=== PATIENT | male | born 1960 | race Caucasian/White ===

== ENCOUNTER 2017-02-26 11:17 | Emergency (ER) | payer SELFPAY ==
[~2017-02-26] VITALS: Ht 172.7 cm; Wt 129.6 kg
[~2017-02-26 11:17] MED LIST: ACET-1256 PO; GUAI1TAB55 PO; VNTHFA/IN INH
[2017-02-26 11:22] VITALS: TEMP 36.7; Ht 172.7 cm; Wt 129.6 kg
--- NOTE | 2017-02-26 12:07 | EMERGENCY ROOM VISIT NOTE ---
ED Visit Note First contact with patient: 11:34 CHIEF COMPLAINT: knee pain HISTORY OF PRESENT ILLNESS: This 56-year-old male patient presents to the emergency department ambulatory after sustaining an injury to the left knee when he was stepping out of his truck yesterday and stepped on a rock causing him to twist his knee and fall. The patient denies any other injuries besides their knee. The patient admits to swelling but denies bruising. There is pain diffusely over the knee but particularly in the lateral aspect. They rate the pain as sharp and 8/10. The patient states they are able to walk on it. No numbness or tingling. No previous injuries to this knee. No ankle, foot or hip pain. REVIEW OF SYSTEMS: A 10 system review of systems was completed with positives and pertinent negatives listed in the HPI. ALLERGIES: No known drug allergies MEDICATIONS: Albuterol PMH: Asthma SOCIAL HISTORY: The patient is employed. He does not smoke currently PHYSICAL EXAM: Vital Signs: Reviewed Nurse's notes, vital signs stable. GENERAL : This is a 56-year-old male, no acute distress, but appears in pain, well- developed, well-nourished. MENTAL STATUS: Alert, oriented to person place and time, and cooperative. MUSCULOSKELETAL: The left knee is mildly swollen. There is no ecchymosis. There is moderate joint effusion present. The patient is tender diffusely over the knee but particularly in the lateral aspect. There is lateral joint line tenderness. The patella does not subluxate. Range of motion is intact but painful. Strength of the quads and hamstrings is 5/5. Oxana's is painful. Hector's and Anterior Drawer tests are negative. There is pain but no obvious laxity with varus and valgus stressing. The foot and toes are warm and well-perfused. Dorsalis pedis pulse 2+. Sensation to pain and light touch is intact. Capillary refill less than 2 seconds. SKIN: There is erythema and warmth to the bilateral anterior lower legs. The patient states this has been there for a proximally 1 month and he dates that his significant other believes it is worsening. He has not had fevers. He has not had lymphangitic streaking. EMERGENCY DEPARTMENT COURSE: I examined the patient. X-rays of the left knee were reviewed by myself and read by radiology and reveal effusion but no obvious fracture. The patient was placed in a knee immobilizer under my direction and the position was satisfactory. The patient declined pain medication. I suspect the patient has a ligamentous injury or possible meniscal injury. He should follow-up with orthopedics. The patient also appears to have cellulitis to the bilateral lower extremities. He states it has been there for several months but his significant other thought it might be worsening slightly. He has not had any fevers. He will be placed on Bactrim and Keflex. The patient was discharged home in good condition. DISCHARGE INSTRUCTIONS: Ice and elevate knee for swelling and pain. Wear knee immobilizer when up and about. Ibuprofen 600 mg every 6 hrs for pain. Follow-up with Orthopedics for further evaluation and treatment - call for appointment. Return with any worsening symptoms. The patient called back to the emergency Department several hours after being discharged. I did forget to send the Bactrim and Keflex prescriptions to the pharmacy. After speaking with him, immediately wrote the prescriptions and electronically symptoms to the pharmacy and additionally personally called the pharmacy to advise him that the prescriptions have been sent. LEFT KNEE 3 VIEWS CLINICAL HISTORY: Left knee pain following twisting injury. COMPARISON: Left knee radiograph January 26, 2015. FINDINGS: Alignment of the left knee is anatomic. No acute fracture is identified. There is a moderate left knee joint effusion. Mild osteophytosis of the left knee is present. IMPRESSION: 1. No acute fracture. 2. Moderate-sized left knee joint effusion. Problem List Medical Problems: (1) Asthma Status: Chronic (2) Avulsion of skin of finger Status: Resolved (3) Bronchitis Status: Resolved (4) Cough Status: Resolved (5) Facial cellulitis Status: Resolved (6) Hoarseness of voice Status: Resolved (7) Hordeolum internum of right lower eyelid Status: Resolved (8) Hordeolum internum of right lower eyelid Status: Resolved (9) Knee contusion Status: Resolved Current/Historical Medications Scheduled Acetaminophen (Tylenol), 1,000 MG PO PRN UD Cephalexin Monohydrate (Keflex), 500 MG PO QID Guaifenesin Ext Rel (Mucinex Ext Rel), 1,200 MG PO Q12 Sulfa/Trimethoprim (Bactrim Ds 800MG/160MG), 1 TAB PO BID Scheduled PRN Albuterol Hfa (Ventolin Hfa), 2 PUFF INH Q4 PRN for SOB/Wheezing Allergies Coded Allergies: No Known Allergies (Verified , 02/26/17) Vital Signs Date Time Temp Pulse Resp B/P Pulse Ox O2 Delivery O2 Flow Rate FiO2 02/26/17 12:55 84 18 144/84 96 02/26/17 11:22 36.7 20 20 139/80 93 Room Air Departure Information Impression Primary Impression: Knee pain Additional Impressions: Knee effusion Cellulitis, leg Dispostion Home / Self-Care Condition GOOD Prescriptions Cephalexin Monohydrate (Keflex) 500 Mg Cap 500 MG PO QID for 10 Days, #40 CAP Prov: Mary Herrera PA-C 02/26/17 Sulfa/Trimethoprim (Bactrim Ds 800MG/160MG) Tab 1 TAB PO BID for 10 Days, #20 TAB Prov: Mary Herrera PA-C 02/26/17 Referrals No Doctor, Assigned (PCP) Jesús Hollingsworth MD Forms HOME CARE DOCUMENTATION FORM, IMPORTANT VISIT INFORMATION, Work Instructions Return To Work: 3 days Additional Instructions: Must wear immoblizer until cleared by orthopedics. No driving when wearing the immobilizer. Patient Instructions ED Effusion Knee, [facility] Additional Instructions Ice and elevate knee for swelling and pain. Wear knee immobilizer when up and about. Ibuprofen 600 mg every 6 hrs for pain. Follow-up with Orthopedics for further evaluation and treatment - call for appointment. Return with any worsening symptoms. Problem Qualifiers Primary Impression: Knee pain Laterality: left Chronicity: acute Qualified Codes: M25.562 - Pain in left knee Additional Impressions: Knee effusion Laterality: left Qualified Codes: M25.462 - Effusion, left knee
--- NOTE | 2017-02-26 12:22 | DIAGNOSTIC IMAGING REPORT ---
LEFT KNEE 3 VIEWS CLINICAL HISTORY: Left knee pain following twisting injury. COMPARISON: Left knee radiograph January 26, 2015. FINDINGS: Alignment of the left knee is anatomic. No acute fracture is identified. There is a moderate left knee joint effusion. Mild osteophytosis of the left knee is present. IMPRESSION: 1. No acute fracture. 2. Moderate-sized left knee joint effusion. Electronically signed by: Tyrone Gerard M.D. 02/26/2017 12:20 PM Dictated Date/Time: 02/26/2017 12:19 PM
[2017-02-26 12:55] VITALS: BP 144/84; PULSE 84; O2SAT 96
[2017-02-26] MEDS ORDERED: CEPH500C PO (15:30)
[2017-02-26] MEDS ORDERED: SULF800T23 PO (15:30)
== END 2017-02-26 12:56 | disposition home or self-care (01) ==
LOC: C.EDB 11:20 → C.EDD 12:56
DX: M25.562 Pain in left knee (principal); M25.462 Effusion, left knee; L03.116 Cellulitis of left lower limb; X50.1XXA Overexertion from prolonged static or awkward postures, initial encounter; J45.909 Unspecified asthma, uncomplicated

== ENCOUNTER 2017-10-22 17:57 | Emergency (ER) | payer SELFPAY ==
[~2017-10-22] VITALS: Ht 172.7 cm; Wt 126.4 kg
[2017-10-22 18:11] VITALS: Ht 172.7 cm; Wt 126.4 kg
[2017-10-22] MEDS ORDERED: ACETAMINOPHEN 500 MG TAB PO STA (18:19)
[2017-10-22] MEDS ORDERED: IBUPROFEN 600 MG TAB PO STA (18:19)
[2017-10-22] MEDS ORDERED: ALBUT/IPRATROP 3MG/0.5MG NEB 3 ML VIAL INH STA (18:19)
[2017-10-22] MEDS ORDERED: METHYLPREDNISOLONE 125 MG VIAL IV STA (18:19)
--- NOTE | 2017-10-22 18:30 | EMERGENCY ROOM VISIT NOTE ---
History Report prepared by Leonard: Julieta Conley Under the Supervision of: Dr. Travis Smith M.D. First contact with patient: 18:14 Chief Complaint: COUGH Stated Complaint: COUGH History of Present Illness The patient is a 57 year old male who presents to the Emergency Room with complaints of persistent cough starting 4-5 days ago. The patient is having right rib pain when he coughs. The pain developed after he started coughing. He has tried taking Mucinex and Sudafed and coughed up some phlegm. He has a headache that worsens when he coughs. He states that his head feels "like it will explode" when he coughs. He is SOB and has a fever. He notes a history of asthma. He has not had pneumonia before. He notes that he was in contact with someone with pneumonia recently. He did not get his flu shot this year. He denies coming into contact with anyone with the flu recently. He denies any history of diabetes. He does have a family history of diabetes. Source of History: patient Onset: 4-5 days ago Position: other (global) Quality: other (cough) Timing: other (persistent) Associated Symptoms: + fevers, + headache, + SOB Note: Pt reports right rib pain. Review of Systems See HPI for pertinent positives & negatives. A total of 10 systems reviewed and were otherwise negative. Past Medical & Surgical Medical Problems: (1) Asthma (2) Avulsion of skin of finger (3) Bronchitis (4) Cough (5) Facial cellulitis (6) Hoarseness of voice (7) Hordeolum internum of right lower eyelid (8) Hordeolum internum of right lower eyelid (9) Knee contusion Family History FH: HTN (hypertension) FH: heart disease FHx: diabetes mellitus Social History Smoking Status: Former Smoker Alcohol Use: none Drug Use: none Marital Status: Occupation Status: employed Current/Historical Medications Scheduled Levofloxacin (Levaquin), 750 MG PO QD Scheduled PRN Albuterol Hfa (Ventolin Hfa), 2 PUFF INH Q4 PRN for SOB/Wheezing Allergies Coded Allergies: No Known Allergies (Verified , 10/22/17) Physical Exam Vital Signs Date Time Temp Pulse Resp B/P (MAP) Pulse Ox O2 Delivery O2 Flow Rate FiO2 10/22/17 19:04 101 10/22/17 18:11 37.5 103 20 154/82 93 Room Air Physical Exam GENERAL: Patient is in no acute distress. HEENT: No acute trauma, normocephalic atraumatic, mucous membranes moist, no nasal congestion, no scleral icterus. NECK: No stridor, no adenopathy, no meningismus, trachea is midline. CHEST: Right lateral chest wall tenderness with palpation. LUNGS: Dry cough noted. Breath sounds slightly diminished bilaterally. No wheezing or rhonchi noted, breath sounds are equal. HEART: Very mildly tachycardic. Regular rhythm. No murmurs. ABDOMEN: Soft, nontender, bowel sounds positive, no hernias, no peritonitis. EXTREMITIES: No cyanosis or edema, full range of motion of all the joints without pain or difficulty, no signs for acute trauma. NEUROLOGIC: Oriented x 3, no acute motor or sensory deficits, no focal weakness. SKIN: No rash, no jaundice, no diaphoresis. Medical Decision & Procedures ER Provider Diagnostic Interpretation: X-ray results as stated below per interpretation by me and the radiologist: CHEST ONE VIEW PORTABLE CLINICAL HISTORY: EVALUATE RESPIRATORY DISTRESS.DYSPNEA COMPARISON STUDY: 08/18/2016 FINDINGS: Minimal poorly defined parenchymal infiltrative change left lung base. No consolidative infiltrate. Diaphragms smooth. Right hemithorax is clear. IMPRESSION: Minimal poorly defined parenchymal infiltrate left base. The above report was generated using voice recognition software. It may contain grammatical, syntax or spelling errors. Electronically signed by: Robinson Mendez M.D. 10/22/2017 6:55 PM Dictated Date/Time: 10/22/2017 6:51 PM Laboratory Results 10/22/17 18:29 Red Blood Count 4.99, Mean Corpuscular Volume 87.8, Mean Corpuscular Hemoglobin 29.9, Mean Corpuscular Hemoglobin Concent 34.0, Mean Platelet Volume 10.1, Neutrophils (%) (Auto) 73.0, Lymphocytes (%) (Auto) 15.8, Monocytes (%) (Auto) 8.3, Eosinophils (%) (Auto) 1.8, Basophils (%) (Auto) 0.4, Neutrophils # (Auto) 12.52, Lymphocytes # (Auto) 2.71, Monocytes # (Auto) 1.43, Eosinophils # (Auto) 0.31, Basophils # (Auto) 0.07 10/22/17 18:29 Test 10/22/17 18:29 White Blood Count 17.16 K/uL (4.8-10.8) Red Blood Count 4.99 M/uL (4.7-6.1) Hemoglobin 14.9 g/dL (14.0-18.0) Hematocrit 43.8 % (42-52) Mean Corpuscular Volume 87.8 fL (80-100) Mean Corpuscular Hemoglobin 29.9 pg (25-34) Mean Corpuscular Hemoglobin Concent 34.0 g/dl (32-36) Platelet Count 251 K/uL (130-400) Mean Platelet Volume 10.1 fL (7.4-10.4) Neutrophils (%) (Auto) 73.0 % Lymphocytes (%) (Auto) 15.8 % Monocytes (%) (Auto) 8.3 % Eosinophils (%) (Auto) 1.8 % Basophils (%) (Auto) 0.4 % Neutrophils # (Auto) 12.52 K/uL (1.4-6.5) Lymphocytes # (Auto) 2.71 K/uL (1.2-3.4) Monocytes # (Auto) 1.43 K/uL (0.11-0.59) Eosinophils # (Auto) 0.31 K/uL (0-0.5) Basophils # (Auto) 0.07 K/uL (0-0.2) RDW Standard Deviation 42.5 fL (36.4-46.3) RDW Coefficient of Variation 13.2 % (11.5-14.5) Immature Granulocyte % (Auto) 0.7 % Immature Granulocyte # (Auto) 0.12 K/uL (0.00-0.02) Anion Gap 6.0 mmol/L (3-11) Est Creatinine Clear Calc Drug Dose 122.8 ml/min Estimated GFR () 111.8 Estimated GFR (Non- 96.5 BUN/Creatinine Ratio 19.4 (10-20) Calcium Level 9.2 mg/dl (8.5-10.1) Laboratory results reviewed by me. Medications Administered Medications (Trade) Dose Ordered Sig/Janis Route Start Time Stop Time Status Last Admin Dose Admin Methylprednisolone Sodium Succinate (Solu-Medrol IV) 80 mg NOW STAT IV 10/22/17 18:19 10/22/17 18:23 DC 11/28/17 18:34 80 MG Albuterol/ Ipratropium (Duoneb) 3 ml NOW STAT INH 10/22/17 18:19 10/22/17 18:23 DC 10/22/17 18:34 3 ML Ibuprofen (Motrin Tab) 600 mg NOW STAT PO 10/22/17 18:19 10/22/17 18:23 DC 10/22/17 18:35 600 MG Acetaminophen (Tylenol Tab) 1,000 mg NOW STAT PO 10/22/17 18:19 10/22/17 18:23 DC 10/22/17 18:35 1,000 MG ED Course 1816: The patient was evaluated in room B9. A complete history and physical exam was performed. 1818: Acetaminophen 1000 mg PO, Ibuprofen 600 mg PO, Duoneb 3 ml INH, Solu- Medrol IV 80 mg IV. 1908: Levofloxacin 750 mg PO. 1912: I reevaluated the patient. I updated him on the results. 1936: I reevaluated the patient. I discussed results and discharge instructions : He verbalized understanding and agreement. The patient is ready for discharge. Medical Decision Differential diagnoses considered include pneumonia, bronchitis, pneumothorax, rib fracture, chest wall muscle pull, viral illness, sinusitis. There is a moderate leukocytosis of 17,000, this could be consistent with infection. No anemia. No significant electrolyte abnormality or kidney failure. Blood cultures are pending. Chest film shows a left lower lung pneumonia. No pneumothorax, no obvious rib fracture, no CHF. The patient was given a DuoNeb, oral Motrin and oral Tylenol. He received oral Levaquin. He was given a dose of IV Solu-Medrol. The patient is not hypoxic. His heart rate is currently in the 90s. Certainly , the diagnosis of pneumonia explains his presentation. I do think he is stable for discharge. He will be discharged on 5 more days of high-dose Levaquin. He will use his albuterol inhaler frequently. [id number] pain medications and fever control were suggested, hydration and rest were suggested. He will see his doctor this week and return here if not improving or worsening. Impression Primary Impression: Pneumonia Scribe Attestation The scribe's documentation has been prepared under my direction and personally reviewed by me in its entirety. I confirm that the note above accurately reflects all work, treatment, procedures, and medical decision making performed by me. Departure Information Dispostion Home / Self-Care Prescriptions Levofloxacin (Levaquin) 750 Mg Tab 750 MG PO QD for 5 Days, #5 TAB Prov: Travis Smith M.D. 10/22/17 Referrals Judy Mancilla C.R.N.P. (PCP) Forms HOME CARE DOCUMENTATION FORM, IMPORTANT VISIT INFORMATION Patient Instructions [facility] Additional Instructions Levaquin daily for 5 more days albuterol 3 puffs every 4 hours motrin and or tylenol for pain rest stay well hydrated see stacy cohen this week return if not improving or if worsening
[2017-10-22 18:56] LABS: BASO % 0.4 %; BASO ABS # 0.07 K/uL (0-0.2); COMPLETE YES; EOS % 1.8 %; HEMATOCRIT 43.8 % (42-52); IG% 0.7 %; LYMPH % 15.8 %; LYMPH ABS # 2.71 K/uL (1.2-3.4); MEAN CELL VOLUME 87.8 fL (80-100); MEAN CORPUSCULAR HEMOGLOBIN 29.9 pg (25-34); MEAN PLATELET VOLUME 10.1 fL (7.4-10.4); MONO % 8.3 %; PLATELET COUNT 251 K/uL (130-400); RED BLOOD COUNT 4.99 M/uL (4.7-6.1); WHITE BLOOD COUNT 17.16 K/uL (4.8-10.8)
--- NOTE | 2017-10-22 18:56 | DIAGNOSTIC IMAGING REPORT ---
CHEST ONE VIEW PORTABLE CLINICAL HISTORY: EVALUATE RESPIRATORY DISTRESS.DYSPNEA COMPARISON STUDY: 08/18/2016 FINDINGS: Minimal poorly defined parenchymal infiltrative change left lung base. No consolidative infiltrate. Diaphragms smooth. Right hemithorax is clear. IMPRESSION: Minimal poorly defined parenchymal infiltrate left base. The above report was generated using voice recognition software. It may contain grammatical, syntax or spelling errors. Electronically signed by: Robinson Mendez M.D. 10/22/2017 6:55 PM Dictated Date/Time: 10/22/2017 6:51 PM
[2017-10-22] MEDS ORDERED: LEVOFLOXACIN 250 MG TAB PO STA (19:09)
[2017-10-22 19:11] LABS: CREATININE 0.87 mg/dl (0.60-1.40)
[2017-10-22 19:12] LABS: BUN/CREATININE RATIO 19.4 (10-20); CALCIUM 9.2 mg/dl (8.5-10.1); POTASSIUM 3.7 mmol/L (3.5-5.1)
[2017-10-22] MEDS ORDERED: LEVO1TAB35 PO (19:34)
[2017-10-22 20:04] VITALS: BP 103/63; PULSE 90; TEMP 36.6; O2SAT 94
== END 2017-10-22 20:06 | disposition home or self-care (01) ==
LOC: C.EDB 17:58
DX: J18.9 Pneumonia, unspecified organism (principal); J45.909 Unspecified asthma, uncomplicated; Z87.891 Personal history of nicotine dependence; Z83.3 Family history of diabetes mellitus; Z82.49 Family history of ischemic heart disease and other diseases of the circulatory system

== ENCOUNTER 2021-07-31 23:09 | Observation (INO) ==
[2021-08-01] MEDS ORDERED: methylPREDNISolone 125 MG/2 ML VIAL IV STA (00:13)
[2021-08-01 00:34] LABS: Basophils # (auto) 0.04 K/uL (0-0.2); Basophils % (auto) 0.5 %; Eosinophils # (auto) 0.12 K/uL (0-0.5); Eosinophils % (auto) 1.5 %; Hematocrit (blood only) 41.2 % (42-52); Hemoglobin 13.7 g/dL (14.0-18.0); Immature Granulocytes # (auto) 0.05 K/uL (0.00-0.02); Immature Granulocytes % (auto) 0.6 %; Lymphocytes # (auto) 0.96 K/uL (1.2-3.4); Lymphocytes % (auto) 11.7 %; Mean Corpuscular Hgb Conc 33.3 g/dL (32-36); Mean Corpuscular Volume 87.3 fL (80-100); Monocytes # (auto) 1.04 K/uL (0.11-0.59); Monocytes % (auto) 12.6 %; Neutrophils # (auto) 6.03 K/uL (1.4-6.5); Neutrophils % (auto) 73.1 %; Platelet Count 186 K/uL (130-400); RDW Standard Deviation 44.8 fL (36.4-46.3); Red Blood Count 4.72 M/uL (4.7-6.1); White Blood Count 8.24 K/uL (4.8-10.8)
[2021-08-01 00:47] LABS: Partial Thromboplastin Ratio 1.1; Partial Thromboplastin Time 28.4 Seconds (21.0-31.0); Prothrombin Time 10.5 Seconds (9.0-12.0)
[2021-08-01 01:05] LABS: Albumin Globulin Ratio 0.9 (0.9-2); Albumin Level 3.4 gm/dl (3.4-5.0); Bilirubin,Total 0.7 mg/dl (0.2-1); Calcium 8.7 mg/dl (8.5-10.1); Est GFR (African American) 84.1 ml/min; Est GFR (Non-African American) 72.6 ml/min; Magnesium 1.9 mg/dl (1.8-2.4); Potassium 4.2 mmol/L (3.5-5.1); Total Protein 7.4 gm/dl (6.4-8.2)
[2021-08-01] MEDS ORDERED: ACETAMINOPHEN 500 MG TAB PO STA (01:20)
[2021-08-01] MEDS ORDERED: SODIUM CHLORIDE 0.9% 500 ML IV ONE (01:41)
[2021-08-01] MEDS ORDERED: OPTIRAY 320 125ml IV ONE (02:37)
--- NOTE | 2021-08-01 04:46 | Emergency Department Note ---
Impression & Plan COVID-19 Admit to the [facility] ED Provider Note NAME: YORDY LEON Jr AGE: 61 SEX: M ARRIVES VIA: Walk-In INFORMANT: Patient ED PROVIDER(S): Rita Trinidad DO CHIEF COMPLAINT: Headache and sore throat PLAN: Disposition: Admit to the [facility] service Condition: Guarded MEDICAL DECISION MAKING: This is a 61-year-old male patient with asthma who presents to the emergency department with headache, sore throat and fever. Covid testing was positive. Patient was placed on oxygen for comfort. Chest x-ray was negative. CTA was negative for PE. Patient was given IV steroids and was admitted to the hospital. I discussed the case with the [facility]. Triage Nursing notes reviewed and agree with them. Additional history obtained from the patient's . Prior medical records reviewed Vital Signs: reviewed and unremarkable Differential diagnosis: Pneumonia, bronchitis, Covid, pharyngitis, meningitis ER treatment provided: IV Solu-Medrol Diagnostics interpreted by me: ECG: Sinus tachycardia at a rate of 109 with a right bundle branch block. There is no ST segment elevation or signs of ischemia. This is unchanged from January 2019 Cardiac Monitoring: Sinus tachycardia 107 Laboratory studies: See below Imaging studies: As per stat read CT a chest: Direct comparison made to study from February 02, 2019. Heart is normal in size. Thoracic aorta appears normal. There is no pulmonary embolism. Mediastinal lymph nodes are mildly enlarged. Largest node is in the right paratracheal space measuring 11 x 19 mm. Thoracic esophagus appears normal. Central airways appear normal. The lungs are clear without focal consolidation. There is no pneumothorax, pleural fluid collection. Chest wall appears normal. Impression no pulmonary embolism. Mildly enlarged mediastinal lymph nodes appear stable from prior study. Correlation with history of inflammation recommended. HPI: 61/M arrives for evaluation of headache, sore throat, and fever. The patient describes having these symptoms over the past 3 days. He is unvaccinated from COVID-19. He has a history of diabetes and asthma. Patient states he has felt at his worst tonight. He noticed some blood to the right side of his face and is unsure of where it is coming from. ROS: See above HPI for pertinent positives & negatives. A total of 10 systems reviewed and were otherwise negative. PAST MEDICAL HISTORY:Ovv-qhweggy-sxryxdfon diabetes, hypercholesterolemia, chronic low back pain, asthma PAST SURGICAL HISTORY:See Below FAMILY HISTORY:See Below SOCIAL HISTORY:See Below HOME MEDICATIONS:See list ALLERGIES:Tramadol VITALS:See Below PHYSICAL EXAMINATION: HEENT: Head - normocephalic and atraumatic Pupils are equal, round, and reactive to light. Extraocular eye muscles are intact, and sclera are anicteric. Nose - moist nasal mucosa without discharge. Mouth - moist buccal mucosa. Oropharynx is nonerythematous and there is no tonsillar exudate or e ajay noted. Neck: Supple; no cervical lymphadenopathy Heart: Tachycardic rate and regular rhythm. There is a normal S1 and S2 with no murmurs, clicks, or gallops appreciated. Lungs: Diminished breath sounds at both lung bases Abdomen: Soft, completely nontender, nondistended, with good bowel sounds. There are no palpable pulsatile masses or hepatosplenomegaly. There is no guarding, rigidity, or rebound noted. Extremities: No evidence of cyanosis, clubbing, or edema. There are easily palpable peripheral pulses. Skin: warm and dry with good turgor and no rashes. ED COURSE: Times/Reassessments: 2355: The patient was evaluated in room A 9. A septic protocol was performed. I donned complete PPE as there was concern for COVID- 19. An order was placed for continuous cardiac monitoring. The patient was in a sinus tachycardia at a rate of 107. A twelve-lead EKG was obtained as described above. A Covid swab was obtained. A portable chest x-ray was performed. The patient went for a CT of the chest as described above. He was given a dose of IV Solu-Medrol. I discussed the case with the [facility] hospitalist and they will evaluate for further inpatient care. Rita Trinidad, Past Med/Surg History Medical History Asthma Bleeding hemorrhoids History of benign spinal cord tumor History of kidney stones Nocturnal hypoxemia On home oxygen therapy Severe obstructive sleep apnea Tooth infection Type 2 diabetes mellitus Surgical History History of colonoscopy History of laminectomy History of uvulectomy Family History Father Heart disease Myocardial infarction Hypertension Asthma Mother Diabetes Arthritis Heart disease Myocardial infarction Unknown Diabetes Myocardial infarction Sister Diabetes Brother Colon cancer Diabetes Other No family history of adverse response to anesthesia No pertinent family history in first degree relatives Social History Smoking Status: Former smoker Tobacco Type: Cigarettes Age Started Using Tobacco: 13; Age Quit Using Tobacco: 57; packs per day: 1; Years Smoked: 44; Number of Years Since Quit: 2; Second Hand Exposure: Yes; Hx Alcohol Use: No Hx Substance Use: No Preferred Language: [place] Communication Ability: Effective Hearing Ability: Normal Conference Reservationist Required: No Beliefs That Will Affect Care: None marital status: Current Living Situation: Significant Other current occupational status: employed Feels Safe at Home: Yes Childhood Exposure to Second-Hand Smoke: Yes caffeine: No during the past year weight has: increased > 10 lbs Dental Care, Regularly: No Physical Activity Frequency: 5-6 Times per Week Seatbelt Use: never Sunscreen Use: No Assistive Devices: Glasses Allergies Allergies Allergy/AdvReac Type Severity Reaction Status Date / Time tramadol Allergy Intermediate hives/rash Verified 08/01/21 00:28 Home Meds Previous Rx's Medication Instructions Recorded simvastatin 20 mg tablet 20 mg PO QPM #90 tab 11/03/20 albuterol sulfate 90 mcg/actuation 2 puff INHALATION Q4H PRN #8.5 gm 08/02/21 aerosol inhaler (Ventolin HFA) dexamethasone 6 mg tablet 6 mg PO DAILY 8 Days #8 tab 08/02/21 sitagliptin 100 mg tablet (Januvia) 100 mg PO DAILY #30 tab 08/02/21 Results & Data (ED) Vital Signs Vital Signs - 24 hr 07/31/21 23:14 07/31/21 23:34 08/01/21 00:26 Temperature 38.5 C H Temperature Source Oral Pulse Rate 108 H 110 H Pulse Rate from SpO2 Sensor 113 H Pulse Rhythm Respiratory Rate 22 26 H Respiratory Effort / Characteristics Short of Breath Respiratory Depth Normal Blood Pressure 145/68 H 130/61 Blood Pressure Mean 93 84 Blood Pressure Position Sitting Pulse Oximetry 92 97 Oxygen Delivery Method Room Air Nasal Cannula Oxygen Flow Rate 3 Sepsis Recent Fever Within 48 Hours Yes Sepsis New/Unexplained Change in Mental Status N/A Sepsis Action Taken by Nursing No Action Required 08/01/21 00:34 08/01/21 00:38 08/01/21 01:00 Temperature Temperature Source Pulse Rate 107 H 107 H 103 H Pulse Rate from SpO2 Sensor 103 H Pulse Rhythm Regular Regular Respiratory Rate 20 20 26 H Respiratory Effort / Characteristics Respiratory Depth Blood Pressure 154/66 H Blood Pressure Mean 95 Blood Pressure Position Pulse Oximetry 93 93 97 Oxygen Delivery Method Nasal Cannula Nasal Cannula Oxygen Flow Rate 3 3 Sepsis Recent Fever Within 48 Hours Sepsis New/Unexplained Change in Mental Status Sepsis Action Taken by Nursing 08/01/21 02:00 08/01/21 02:34 08/01/21 03:00 Temperature Temperature Source Pulse Rate 99 H 102 H 93 H Pulse Rate from SpO2 Sensor 101 H 101 H 92 H Pulse Rhythm Respiratory Rate 27 H 21 23 Respiratory Effort / Characteristics Respiratory Depth Blood Pressure 137/77 148/60 H 110/50 L Blood Pressure Mean 97 89 70 Blood Pressure Position Pulse Oximetry 95 91 95 Oxygen Delivery Method Oxygen Flow Rate Sepsis Recent Fever Within 48 Hours Sepsis New/Unexplained Change in Mental Status Sepsis Action Taken by Nursing 08/01/21 04:00 Temperature Temperature Source Pulse Rate 82 Pulse Rate from SpO2 Sensor 82 Pulse Rhythm Respiratory Rate 12 Respiratory Effort / Characteristics Respiratory Depth Blood Pressure 95/49 L Blood Pressure Mean 64 Blood Pressure Position Pulse Oximetry 97 Oxygen Delivery Method Oxygen Flow Rate Sepsis Recent Fever Within 48 Hours Sepsis New/Unexplained Change in Mental Status Sepsis Action Taken by Nursing Laboratory Data Result diagrams: 08/02/21 05:28 08/02/21 05:28 Lab Results 08/01/21 08/01/21 08/01/21 Range/Units 00:15 00:15 00:15 WBC 8.24 (4.8-10.8) K/uL RBC 4.72 (4.7-6.1) M/uL Hgb 13.7 L (14.0-18.0) g/dL Hct 41.2 L (42-52) % MCV 87.3 (80-100) fL MCH 29.0 (25-34) pg MCHC 33.3 (32-36) g/dL RDW Std Deviation 44.8 (36.4-46.3) fL RDW Coeff of Jacquelyn 14.0 (11.5-14.5) % Plt Count 186 (130-400) K/uL MPV 10.0 (7.4-10.4) fL Immature Gran % (Auto) 0.6 % Neut % (Auto) 73.1 % Lymph % (Auto) 11.7 % [place] % (Auto) 12.6 % Eos % (Auto) 1.5 % Baso % (Auto) 0.5 % Neut # (Auto) 6.03 (1.4-6.5) K/uL Lymph # (Auto) 0.96 L (1.2-3.4) K/uL [place] # (Auto) 1.04 H (0.11-0.59) K/uL Eos # (Auto) 0.12 (0-0.5) K/uL Baso # (Auto) 0.04 (0-0.2) K/uL Immature Gran # (Auto) 0.05 H (0.00-0.02) K/uL PT 10.5 (9.0-12.0) Seconds INR 1.0 (0.9-1.1) APTT 28.4 (21.0-31.0) Seconds PTT Ratio 1.1 Sodium 137 (136-145) mmol/L Potassium 4.2 (3.5-5.1) mmol/L Chloride 104 (98-107) mmol/L Carbon Dioxide 25 (21-32) mmol/L Anion Gap 8.0 (3-11) BUN 24 H (7-18) mg/dl Creatinine 1.10 (0.6-1.4) mg/dl Est Cr Clr Drug Dosing 92.0 ml/min Est GFR ( Amer) 84.1 ml/min Est GFR (Non-Af Amer) 72.6 ml/min BUN/Creatinine Ratio 22.0 H (10-20) Glucose 105 H (70-99) mg/dl Lactate (0.4-2.0) mmol/L Calcium 8.7 (8.5-10.1) mg/dl Magnesium 1.9 (1.8-2.4) mg/dl Total Bilirubin 0.7 (0.2-1) mg/dl AST 76 H (15-37) U/L ALT 80 H (12-78) U/L Alkaline Phosphatase 48 (45-117) U/L Total Protein 7.4 (6.4-8.2) gm/dl Albumin 3.4 (3.4-5.0) gm/dl Globulin 4.0 (2.5-4.0) gm/dl Albumin/Globulin Ratio 0.9 (0.9-2) Specimen Hemolysis COVID-19 Eval Order SARS-CoV-2 (PCR) (Negative) 08/01/21 08/01/21 08/01/21 Range/Units 00:15 00:50 00:50 WBC (4.8-10.8) K/uL RBC (4.7-6.1) M/uL Hgb (14.0-18.0) g/dL Hct (42-52) % MCV (80-100) fL MCH (25-34) pg MCHC (32-36) g/dL RDW Std Deviation (36.4-46.3) fL RDW Coeff of Jacquelyn (11.5-14.5) % Plt Count (130-400) K/uL MPV (7.4-10.4) fL Immature Gran % (Auto) % Neut % (Auto) % Lymph % (Auto) % [place] % (Auto) % Eos % (Auto) % Baso % (Auto) % Neut # (Auto) (1.4-6.5) K/uL Lymph # (Auto) (1.2-3.4) K/uL [place] # (Auto) (0.11-0.59) K/uL Eos # (Auto) (0-0.5) K/uL Baso # (Auto) (0-0.2) K/uL Immature Gran # (Auto) (0.00-0.02) K/uL PT (9.0-12.0) Seconds INR (0.9-1.1) APTT (21.0-31.0) Seconds PTT Ratio Sodium (136-145) mmol/L Potassium (3.5-5.1) mmol/L Chloride (98-107) mmol/L Carbon Dioxide (21-32) mmol/L Anion Gap (3-11) BUN (7-18) mg/dl Creatinine (0.6-1.4) mg/dl Est Cr Clr Drug Dosing ml/min Est GFR ( Amer) ml/min Est GFR (Non-Af Amer) ml/min BUN/Creatinine Ratio (10-20) Glucose (70-99) mg/dl Lactate 1.7 (0.4-2.0) mmol/L Calcium (8.5-10.1) mg/dl Magnesium (1.8-2.4) mg/dl Total Bilirubin (0.2-1) mg/dl AST (15-37) U/L ALT (12-78) U/L Alkaline Phosphatase (45-117) U/L Total Protein (6.4-8.2) gm/dl Albumin (3.4-5.0) gm/dl Globulin (2.5-4.0) gm/dl Albumin/Globulin Ratio (0.9-2) Specimen Hemolysis COVID-19 Eval Order Covid19 at [facility] SARS-CoV-2 (PCR) POSITIVE A* (Negative) Administered Medications Discontinued Medications Acetaminophen (Acetaminophen 500 Mg Tab) 1,000 mg PO NOW STA Stop: 08/01/21 01:21 Last Admin: 08/01/21 02:39 Dose: 1,000 mg Documented by: [id number] Albuterol (Ipratropium Marcy/Albuterol Respimat Inh) 1 puffs INH QID MARYBETH Stop: 08/31/21 16:59 Last Admin: 08/01/21 18:12 Dose: Not Given Documented by: [id number] Albuterol (Albuterol Hfa 8 Gm Inhaler) 1 puffs INH QIDR MARYBETH Stop: 08/31/21 18:59 Last Admin: 08/02/21 11:14 Dose: 1 puffs Documented by: [id number] Admin: 08/02/21 07:30 Dose: 1 puffs Documented by: [id number] Admin: 08/01/21 19:45 Dose: 1 puffs Documented by: [id number] Enoxaparin Sodium (Enoxaparin Inj 40 Mg/0.4 Ml Syr) 40 mg SQ Q12 MARYBETH Stop: 08/31/21 08:59 Last Admin: 08/02/21 08:38 Dose: 40 mg Documented by: [id number] Admin: 08/01/21 22:31 Dose: 40 mg Documented by: [id number] Admin: 08/01/21 08:02 Dose: 40 mg Documented by: [id number] Guaifenesin (Guaifenesin 600 Mg Tabcr) 1,200 mg PO Q12 MARYBETH Stop: 08/31/21 09:39 Last Admin: 08/02/21 08:38 Dose: 1,200 mg Documented by: [id number] Admin: 08/01/21 22:32 Dose: 1,200 mg Documented by: [id number] Admin: 08/01/21 10:46 Dose: 1,200 mg Documented by: [id number] Sodium Chloride (Nss) 500 mls @ 999 mls/hr IV .Q31M ONE Stop: 08/01/21 02:11 Last Infusion: 08/01/21 05:36 Dose: 0 mls/hr Documented by: [id number] Admin: 08/01/21 02:40 Dose: 999 mls/hr Documented by: [id number] Dexamethasone 6 mg/ Syringe 1.5 mls @ 1 mls/min IV Q24H MARYBETH Stop: 08/31/21 08:59 Last Admin: 08/02/21 08:29 Dose: 1 mls/min Documented by: [id number] Admin: 08/01/21 07:57 Dose: 1 mls/min Documented by: [id number] Lactated Ringer's (Lr) 1,000 mls @ 125 mls/hr IV .Q8H MARYBETH Stop: 08/01/21 14:34 Last Infusion: 08/01/21 16:40 Dose: 0 mls/hr Documented by: [id number] Admin: 08/01/21 07:59 Dose: 125 mls/hr Documented by: [id number] Insulin Aspart (Insulin Aspart 100 Units/Ml 3 Ml Pen) 0 units SC ACHS MARYBETH Stop: 08/31/21 07:29 Last Admin: 08/02/21 12:18 Dose: 3 units Documented by: [id number] Cosigned by: [id number] Admin: 08/02/21 08:39 Dose: 4 units Documented by: [id number] Cosigned by: [id number] Admin: 08/01/21 21:45 Dose: 2 units Documented by: [id number] Cosigned by: [id number] Admin: 08/01/21 17:32 Dose: 4 units Documented by: [id number] Cosigned by: [id number] Admin: 08/01/21 12:21 Dose: 7 units Documented by: [id number] Cosigned by: [id number] Admin: 08/01/21 08:47 Dose: 4 units Documented by: [id number] Cosigned by: [id number] Insulin Glargine (Insulin Glargine Solostar 100 Units/Ml 3 Ml Pen) 7 units SC BID MARYBETH Stop: 08/31/21 08:59 Last Admin: 08/02/21 08:39 Dose: 7 units Documented by: [id number] Cosigned by: [id number] Admin: 08/01/21 21:45 Dose: 7 units Documented by: [id number] Cosigned by: [id number] Admin: 08/01/21 08:47 Dose: 7 units Documented by: [id number] Cosigned by: [id number] Ioversol (Optiray 320 125ml) 125 ml IV ONCE ONE Stop: 08/01/21 02:38 Last Admin: 08/01/21 02:37 Dose: 118 ml Documented by: [id number] Ipratropium Marcy (Ipratropium Marcy Hfa Inhaler) 1 puffs INH QIDR MARYBETH Stop: 08/31/21 18:59 Last Admin: 08/02/21 11:14 Dose: 1 puffs Documented by: [id number] Admin: 08/02/21 07:31 Dose: 1 puffs Documented by: [id number] Admin: 08/01/21 19:43 Dose: 1 puffs Documented by: [id number] Meloxicam (Meloxicam 7.5 Mg Tab) 7.5 mg PO BID MARYBETH Stop: 08/31/21 08:59 Last Admin: 08/02/21 10:04 Dose: 7.5 mg Documented by: [id number] Admin: 08/01/21 22:33 Dose: 7.5 mg Documented by: [id number] Admin: 08/01/21 08:02 Dose: 7.5 mg Documented by: [id number] Methylprednisolone (Methylprednisolone 125 Mg/2 Ml Vial) 125 mg IV NOW [facility] Stop: 08/01/21 00:14 Last Admin: 08/01/21 01:07 Dose: 125 mg Documented by: [id number] Simvastatin (Simvastatin 20 Mg Tab) 20 mg PO QPM MARYBETH Stop: 08/31/21 20:59 Last Admin: 08/01/21 22:33 Dose: 20 mg Documented by: [id number] Imaging Data Radiologist's Impression: Chest X-Ray 07/31/21 23:34 XR chest 1V portable HISTORY: 61 years-old Male SEPSIS COMPARISON: CTA chest of same day, chest radiograph 02/22/2019 TECHNIQUE: Portable AP view of the chest FINDINGS: Cardiomediastinal and hilar silhouettes are within normal limits. No pneumothorax, pleural effusion, airspace consolidation or overt pulmonary edema. No acute fracture. IMPRESSION: No acute process. ACT 112: Negative or not required by law. The above report was generated using voice recognition software. It may contain grammatical, syntax or spelling errors. Electronically signed by: Moisés Yen M.D. 08/01/2021 9:25 AM Chest CTA 08/01/21 01:54 CT angio chest PE protocol CT DOSE: 961.16 mGy.cm HISTORY: 61 years-old Male with PE. Acute shortness of breath TECHNIQUE: Multiple CTA images of the chest were obtained after the intravenous administration of 118 ml Optiray. Coronal and sagittal MIPS were obtained from the axial data set and were submitted for review. All measurements were obtained according to NASCET criteria. A dose lowering technique was utilized adhering to the principles of ALARA. COMPARISON: Chest radiograph of same day, CTA chest 02/02/2019 FINDINGS: CTA: The heart is normal in size without pericardial effusion. Mild coronary artery calcifications. No thoracic aortic aneurysm or dissection. Mild atherosclerosis. The segmental and subsegmental branches of the pulmonary arterial tree are suboptimally visualized secondary to contrast bolus timing. CT CHEST: Unremarkable thyroid. Mildly enlarged paratracheal and subcarinal lymph nodes measure up to 10 mm which are similar to comparison and favored to be benign. No pneumothorax, pleural effusion, airspace consolidation or overt pulmonary edema. Minimal subpleural bleb formation of the lung apices. No suspicious pulmonary nodules or masses. Punctate calcified granuloma of the right upper lobe. Mild bibasilar bronchial wall thickening with mucous plugging. Hepatic steatosis. Ill-defined area of enhancement measuring 1.3 cm the right hepatic lobe may represent an enhancing lesion versus vascular shunting, incompletely characterized on this exam. Unremarkable soft tissues. No acute fra cture. Degenerative changes of the spine and shoulders. Prior mid thoracic laminectomy. IMPRESSION: 1. No pulmonary emboli. 2. Mild bibasilar bronchial wall thickening with mucous plugging suggestive of bronchitis or reactive airway disease. 3. Mild mediastinal adenopathy is stable from 2019, likely benign. ACT 112: Negative or not required by law. The above report was generated using voice recognition software. It may contain grammatical, syntax or spelling errors. Electronically signed by: Moisés Yen M.D. 08/01/2021 8:45 AM Discharge Plan Visit Data Chief Complaint: Fever Stated Complaint: FEVER, FACIAL SWELLING ED Provider: Rita Trinidad Discharge Problem: COVID-19 Patient Disposition: Admitted As Inpatient Discharge Instructions Interventions: ED Discharge Assessment Last Done: 08/01/21 06:16
--- NOTE | 2021-08-01 05:05 | History & Physical Report ---
Date of Service August 01, 2021 Assessment & Plan (1) COVID-19: Plan: 61yo male with history of HTN, HLP, DM, Asthma, Severe LAVONNE and Obesity with BMI of 42.9 presenting with Covid-19 infection. Patient reports feeling ill for the last 7-8 days. He reports some worsening shortness of breath as well as possible bleeding noted on towel after a shower. -Observation to medical -Maintain isolation precautions -Supplemental O2 as needed -Dexamethasone 6mg IV daily -Lovenox 40 mg BID -Consider Remdesivir should patient worsen -Check BNP and Procalcitonin (2) Asthma: Plan: No wheezing appreciated on exam -Albuterol PRN (3) Hyperlipidemia: Plan: Chronic -Continue Simvastatin 20mg po qPM (4) Hypertension: Plan: Blood pressure presently borderline low at 95/49. Patient administered 500mL IVF in ER. No home BP medications -Continue gentle IVF -Monitor BP (5) Severe obstructive sleep apnea: Plan: Chronic. Patient has been seen by Dr. Malin in the past. He wears CPAP qHS with 2L O2 - is fairly compliant with his regimen. -Continue CPAP qHS with O2 (6) Type 2 diabetes mellitus: Plan: Well controlled on Metformin therapy. Last [id number] on 07/29/21 -Hold Metformin while inpatient -Lantus 7u BID with ISS Plan: F/E/N - LR at 125mL/hr x 1 liter, monitor electrolytes and replete as needed, CC diet as tolerated Ppx - Lovenox 40 mg BID Code - DNR/DNI per discussion with patient Dispo - Observation to medical History of Present Illness Chief Complaint: Covid-19 infection Primary Care Provider: CLYDE Gonzales Soto Reynolds is a 61yo male presenting with Covid-19 infection. Patient states that he started feeling ill approximately 1 week ago. He complains of subjective fever, cough productive for clear sputum as well as shortness of breath. He denies chest pain, palpitations, dizziness, abdominal pain, nausea, vomiting, diarrhea. Patient is not vaccinated against Covid. He is unsure of any sick contacts. He presents today because he reports getting out of the shower and wiping blood off his head with his towel. He is uncertain where the blood came from. Denies fall, trauma, cuts, bruises. ER physician states patient was tachycardic, tachypneic and ill in appearance upon arrival. He was given Dexamethasone. Complaining of shortness of breath, otherwise no complaints at this time. ER Course: Acetaminophen, Solumedrol, NSS Allergies Allergy/AdvReac Type Severity Reaction Status Date / Time tramadol Allergy Intermediate hives/rash Verified 08/01/21 00:28 Home Medications Medication Instructions Recorded Confirmed Type albuterol sulfate 90 mcg/actuation 2 puff INHALATION Q4H PRN #8.5 gm 01/26/20 08/01/21 Rx aerosol inhaler (Ventolin HFA) metformin 1,000 mg tablet 1,000 mg PO BID #180 tab 09/28/20 08/01/21 Rx simvastatin 20 mg tablet 20 mg PO QPM #90 tab 11/03/20 08/01/21 Rx meloxicam 7.5 mg tablet 7.5 mg PO BID #60 tab 06/09/21 08/01/21 Rx Past Med/Surg History Medical History Asthma Bleeding hemorrhoids History of benign spinal cord tumor History of kidney stones Nocturnal hypoxemia On home oxygen therapy Severe obstructive sleep apnea Tooth infection Type 2 diabetes mellitus Surgical History History of colonoscopy History of laminectomy History of uvulectomy Family History Father Heart disease Myocardial infarction Hypertension Asthma Mother Diabetes Arthritis Heart disease Myocardial infarction Unknown Diabetes Myocardial infarction Sister Diabetes Brother Colon cancer Diabetes Other No family history of adverse response to anesthesia No pertinent family history in first degree relatives Social History Smoking Status: Current some day smoker Tobacco Type: Cigarettes Age Started Using Tobacco: 13; Age Quit Using Tobacco: 57; packs per day: 1; Years Smoked: 44; Number of Years Since Quit: 2; Second Hand Exposure: Yes (parents smoked); Hx Alcohol Use: No Hx Substance Use: No Preferred Language: Faroese Communication Ability: Effective Hearing Ability: Normal 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 Beliefs That Will Affect Care: None marital status: Current Living Situation: Significant Other current occupational status: employed Feels Safe at Home: Yes Childhood Exposure to Second-Hand Smoke: Yes caffeine: No during the past year weight has: increased > 10 lbs Dental Care, Regularly: No Physical Activity Frequency: 5-6 Times per Week Seatbelt Use: never Sunscreen Use: No Assistive Devices: CPAP, Glasses and Oxygen - at Night Review of Systems Review of Systems: All systems reviewed & are unremarkable except as noted in HPI & below Physical Exam Physical Exam: General: patient resting comfortably, NAD, ill in appearance, AA&O x 4, mildly diaphoretic Skin: warm, dry, intact, no rashes or lesions HEENT: NC/AT, PERRL, EOMI, anicteric sclera, conjunctiva without injection, external ear normal to inspection and nontender, nares patent, moist mucus membranes, dentition intact, no oropharyngeal lesions, neck supple, trachea midline, no LAD, no thyromegaly, no JVD Heart: +S1/S2, regular, tachycardic, no m/r/g Lungs: equal air entry bilaterally, no rales/rhonchi/wheezes Abd: +BS, soft, NT/ND, no masses/organomegaly/ascites Ext: warm, 2+ pulses in UE/LE bilaterally, no clubbing/cyanosis or edema Neuro: nonfocal, patient AA&O x 4, speech intact, no facial droop, moving all extremities on command with equal strength 5/5 Results & Data Results & Data ([facility]) Vital Signs (Past 12 Hours) Vital Signs Temp Pulse Resp BP Pulse Ox 08/01/21 00:38 107 H 20 93 08/01/21 00:34 107 H 20 93 07/31/21 23:14 38.5 C H 108 H 22 145/68 H 92 Laboratory Results Laboratory Results WBC 8.24 K/uL (4.8-10.8) 08/01/21 00:15 RBC 4.72 M/uL (4.7-6.1) 08/01/21 00:15 Hgb 13.7 g/dL (14.0-18.0) L 08/01/21 00:15 Hct 41.2 % (42-52) L 08/01/21 00:15 MCV 87.3 fL (80-100) 08/01/21 00:15 MCH 29.0 pg (25-34) 08/01/21 00:15 MCHC 33.3 g/dL (32-36) 08/01/21 00:15 RDW Std Deviation 44.8 fL (36.4-46.3) 08/01/21 00:15 RDW Coeff of Jacquelyn 14.0 % (11.5-14.5) 08/01/21 00:15 Plt Count 186 K/uL (130-400) 08/01/21 00:15 MPV 10.0 fL (7.4-10.4) 08/01/21 00:15 Immature Gran % (Auto) 0.6 % 08/01/21 00:15 Neut % (Auto) 73.1 % 08/01/21 00:15 Lymph % (Auto) 11.7 % 08/01/21 00:15 [place] % (Auto) 12.6 % 08/01/21 00:15 Eos % (Auto) 1.5 % 08/01/21 00:15 Baso % (Auto) 0.5 % 08/01/21 00:15 Neut # (Auto) 6.03 K/uL (1.4-6.5) 08/01/21 00:15 Lymph # (Auto) 0.96 K/uL (1.2-3.4) L 08/01/21 00:15 [place] # (Auto) 1.04 K/uL (0.11-0.59) H 08/01/21 00:15 Eos # (Auto) 0.12 K/uL (0-0.5) 08/01/21 00:15 Baso # (Auto) 0.04 K/uL (0-0.2) 08/01/21 00:15 Immature Gran # (Auto) 0.05 K/uL (0.00-0.02) H 08/01/21 00:15 PT 10.5 Seconds (9.0-12.0) 08/01/21 00:15 INR 1.0 (0.9-1.1) 08/01/21 00:15 APTT 28.4 Seconds (21.0-31.0) 08/01/21 00:15 PTT Ratio 1.1 08/01/21 00:15 Sodium 137 mmol/L (136-145) 08/01/21 00:15 Potassium 4.2 mmol/L (3.5-5.1) 08/01/21 00:15 Chloride 104 mmol/L (98-107) 08/01/21 00:15 Carbon Dioxide 25 mmol/L (21-32) 08/01/21 00:15 Anion Gap 8.0 (3-11) 08/01/21 00:15 BUN 24 mg/dl (7-18) H 08/01/21 00:15 Creatinine 1.10 mg/dl (0.6-1.4) 08/01/21 00:15 Est Cr Clr Drug Dosing 92.0 ml/min 08/01/21 00:15 Est GFR ( Amer) 84.1 ml/min 08/01/21 00:15 Est GFR (Non-Af Amer) 72.6 ml/min 08/01/21 00:15 BUN/Creatinine Ratio 22.0 (10-20) H 08/01/21 00:15 Glucose 105 mg/dl (70-99) H 08/01/21 00:15 Lactate 1.7 mmol/L (0.4-2.0) 08/01/21 00:15 Calcium 8.7 mg/dl (8.5-10.1) 08/01/21 00:15 Magnesium 1.9 mg/dl (1.8-2.4) 08/01/21 00:15 Total Bilirubin 0.7 mg/dl (0.2-1) 08/01/21 00:15 AST 76 U/L (15-37) H 08/01/21 00:15 ALT 80 U/L (12-78) H 08/01/21 00:15 Alkaline Phosphatase 48 U/L (45-117) 08/01/21 00:15 Total Protein 7.4 gm/dl (6.4-8.2) 08/01/21 00:15 Albumin 3.4 gm/dl (3.4-5.0) 08/01/21 00:15 Globulin 4.0 gm/dl (2.5-4.0) 08/01/21 00:15 Albumin/Globulin Ratio 0.9 (0.9-2) 08/01/21 00:15 Specimen Hemolysis 08/01/21 00:15 COVID-19 Eval Order Covid19 at [facility] 08/01/21 00:50 SARS-CoV-2 (PCR) POSITIVE (Negative) A* 09/07/21 00:50 Diagnostic Findings Imaging studies: As per stat read CT a chest: Direct comparison made to study from February 02, 2019. Heart is normal in size. Thoracic aorta appears normal. There is no pulmonary embolism. Mediastinal lymph nodes are mildly enlarged. Largest node is in the right paratracheal space measuring 11 x 19 mm. Thoracic esophagus appears normal. Central airways appear normal. The lungs are clear without focal consolidation. There is no pneumothorax, pleural fluid collection. Chest wall appears normal. Impression no pulmonary embolism. Mildly enlarged mediastinal lymph nodes appear stable from prior study. Correlation with history of inflammation recommended. Code Status & VTE Plan VTE Prophylaxis Plan VTE Prophylaxis will be ordered: Yes PG Care Time/CCT Total # of Minutes Spent Total Time Spent with Patient: Total time spent is greater than 50% in c oordination of care (as documented) at patient's floor/unit and/or counseling patient: Coding Level of Care Code INT OBSERVATION CARE 70M LVL 3 Diagnoses Asthma J45.909 Hyperlipidemia E78.5 Hypertension I10 Severe obstructive sleep apnea G47.33 Type 2 diabetes mellitus E11.9 COVID-19 U07.1
[2021-08-01 05:50] LABS: Appearance Urine Clear (Clear); Bacteria Urine Automated Negative (Negative); Bilirubin Urine Negative (Negative); Blood Urine Negative (Negative); Color Urine Yellow; Epithelial Cell Urine Auto 0-5 /lpf (0-5); Glucose Urine UA Negative (Negative); Ketones Urine Negative (Negative); Leukocyte Esterase Urine Negative (Negative); Nitrite Urine Negative (Negative); Protein Urine Trace (Negative); RBC Urine Automated 0-4 /hpf (0-4); Specific Gravity Urine 1.021 (1.000-1.030); Urobilinogen Urine Negative (Negative); WBC Urine Automated 0 /hpf (0-5); pH Urine 5.5 (4.5-7.5)
[2021-08-01] MEDS ORDERED: GLUCAGON FOR INJ 1 MG VIAL SQ PRN (06:35)
[2021-08-01] MEDS ORDERED: DEXTROSE 50% 50 ML SYRINGE IV PRN (06:35)
[2021-08-01] MEDS ORDERED: CARBOHYDRATES FOR HYPOGLYCEMIA PO PRN (06:35)
[2021-08-01] MEDS ORDERED: GLUCOSE 10 TABS/TUBE PO PRN (06:35)
[2021-08-01] MEDS ORDERED: ALBUTEROL HFA 8 GM INHALER INH PRN (06:35)
[2021-08-01] MEDS ORDERED: LACTATED RINGER'S 1,000 ML IV SCH (06:35)
[2021-08-01] MEDS ORDERED: ACETAMINOPHEN 325 MG TAB PO PRN (06:35)
[2021-08-01] MEDS ORDERED: ONDANSETRON INJ 2 MG/ML 2 ML VIAL IV PRN (06:35)
[2021-08-01] MEDS ORDERED: GLUCOSE 40% GEL 15 GM TUBE PO PRN (06:35)
[2021-08-01] MEDS: dexAMETHasone 6 MG in SYRINGE 0 ML IV SCH (07:57)
[2021-08-01] MEDS: MELOXICAM 7.5 MG TAB PO SCH ×2 (08:02→22:33)
[2021-08-01] MEDS: ENOXAPARIN INJ 40 MG/0.4 ML SYR SQ SCH ×2 (08:02→22:31)
--- NOTE | 2021-08-01 08:40 | Electrocardiogram Report ---
Test Reason : Blood Pressure : / mmHG Vent. Rate : 109 BPM Atrial Rate : 109 BPM P-R Int : 154 ms QRS Dur : 146 ms QT Int : 370 ms P-R-T Axes : 039 043 047 degrees QTc Int : 498 ms Sinus tachycardia Right bundle branch block Abnormal ECG When compared with ECG of 22-FEB-2019 19:56, No significant change was found Confirmed by Pato Linn ([id number]) on 08/01/2021 8:40:20 AM Referred By: REFERRED SELF Confirmed By:Pato Linn
[2021-08-01] MEDS: INSULIN ASPART 100 UNITS/ML 3 ML PEN SC SCH ×4 (08:47→21:45)
[2021-08-01] MEDS: INSULIN GLARGINE SOLOSTAR 100 UNITS/ML 3 ML PEN SC SCH ×2 (08:47→21:45)
--- NOTE | 2021-08-01 08:47 | CT Scan Report ---
CT angio chest PE protocol CT DOSE: 961.16 mGy.cm HISTORY: 61 years-old Male with PE. Acute shortness of breath TECHNIQUE: Multiple CTA images of the chest were obtained after the intravenous administration of 118 ml Optiray. Coronal and sagittal MIPS were obtained from the axial data set and were submitted for review. All measurements were obtained according to NASCET criteria. A dose lowering technique was u tilized adhering to the principles of ALARA. COMPARISON: Chest radiograph of same day, CTA chest 02/02/2019 FINDINGS: CTA: The heart is normal in size without pericardial effusion. Mild coronary artery calcifications. No tho racic aortic aneurysm or dissection. Mild atherosclerosis. The segmental and subsegmental branches of the pulmonary arterial tree are suboptimally visualized secondary to contrast bolus timing. CT CHEST: Unremarkable thyroid. Mildly enlarged paratracheal and subcarinal lymph nodes measure up to 10 mm whi ch are similar to comparison and favored to be benign. No pneumothorax, pleural effusion, airspace co nsolidation or overt pulmonary edema. Minimal subpleural bleb formation of the lung apices. No suspic ious pulmonary nodules or masses. Punctate calcified granuloma of the right upper lobe. Mild bibasila r bronchial wall thickening with mucous plugging. Hepatic steatosis. Ill-defined area of enhancement measuring 1.3 cm the right hepatic lobe may repres ent an enhancing lesion versus vascular shunting, incompletely characterized on this exam. Unremarkab le soft tissues. No acute fracture. Degenerative changes of the spine and shoulders. Prior mid thorac ic laminectomy. IMPRESSION: 1. No pulmonary emboli. 2. Mild bibasilar bronchial wall thickening with mucous plugging suggestive of bronchitis or reactive airway disease. 3. Mild mediastinal adenopathy is stable from 2019, likely benign. ACT 112: Negative or not required by law. The above report was generated using voice recognition software. It may contain grammatical, syntax o r spelling errors. Electronically signed by: Moisés Yen M.D. 08/01/2021 8:45 AM
--- NOTE | 2021-08-01 09:26 | XRay Report ---
XR chest 1V portable HISTORY: 61 years-old Male SEPSIS COMPARISON: CTA chest of same day, chest radiograph 02/22/2019 TECHNIQUE: Portable AP view of the chest FINDINGS: Cardiomediastinal and hilar silhouettes are within normal limits. No pneumothorax, pleural effusion, airspace consolidation or overt pulmonary edema. No acute fracture. IMPRESSION: No acute process. ACT 112: Negative or not required by law. The above report was generated using voice recognition software. It may contain grammatical, syntax o r spelling errors. Electronically signed by: Moisés Yen M.D. 08/01/2021 9:25 AM
[2021-08-01] MEDS: guaiFENesin 600 MG TABCR PO SCH ×2 (10:46→22:32)
[2021-08-01] MEDS ORDERED: IPRATROPIUM BROMIDE/ALBUTEROL respimat INH INH SCH (17:00)
[2021-08-01] MEDS: IPRATROPIUM BROMIDE HFA INHALER INH SCH (19:43)
[2021-08-01] MEDS: ALBUTEROL HFA 8 GM INHALER INH SCH (19:45)
--- NOTE | 2021-08-01 20:40 | Communication Note ---
Date of Service: August 01, 2021 Saw patient mid-afternoon. He was resting comfortably in bed. Main complaint was that of congestion and cough. Some wheezing. No dyspnea at rest. Had bleeding from unidentified location last pm - none since that time. He reports only 1 day of illness; I called and spoke with pt's significant other who reports he had been coughing for at least 1 week. PE: VSS, O2 sats at rest and with activity mid 90s gen - NAD, obese mouth - MMM neck - no JVD heart - RRR, s1 s2 lungs - fine end-exp wheezing b/l, no rales or increased work of breathing abd - obese, soft, NT, ND, BS+ ext - no edema labs reviewed CTA reviewed; no PE A/P: Bronchitis 2nd to COVID-19. No pneumonic infiltrates on CTA. Known asthma. Morbid obesity. T2DM. Transaminitis 2nd to COVID-19 (presumed). Plan - watch overnight. dc fluids. cont IV steroids. schedule combivent 1 puff qid. flutter valve. incentive. add mucinex. sputum cx. significant other updated. repeat labs am. if stable tomorrow can d/c home with continued isolation at home. Tee Barton MD
[2021-08-01] MEDS ORDERED: SIMVASTATIN 20 MG TAB PO SCH (21:00)
[2021-08-02 06:21] LABS: Basophils # (auto) 0.01 K/uL (0-0.2); Basophils % (auto) 0.2 %; Eosinophils # (auto) 0.01 K/uL (0-0.5); Eosinophils % (auto) 0.2 %; Hematocrit (blood only) 41.9 % (42-52); Hemoglobin 13.8 g/dL (14.0-18.0); Immature Granulocytes # (auto) 0.02 K/uL (0.00-0.02); Immature Granulocytes % (auto) 0.3 %; Lymphocytes # (auto) 1.57 K/uL (1.2-3.4); Lymphocytes % (auto) 23.6 %; Mean Corpuscular Hemoglobin 28.6 pg (25-34); Mean Corpuscular Hgb Conc 32.9 g/dL (32-36); Mean Corpuscular Volume 86.7 fL (80-100); Mean Platelet Volume 10.3 fL (7.4-10.4); Monocytes # (auto) 1.05 K/uL (0.11-0.59); Monocytes % (auto) 15.8 %; Neutrophils # (auto) 3.98 K/uL (1.4-6.5); Neutrophils % (auto) 59.9 %; Platelet Count 176 K/uL (130-400); RDW Coefficient of Variation 14.2 % (11.5-14.5); RDW Standard Deviation 44.8 fL (36.4-46.3); Red Blood Count 4.83 M/uL (4.7-6.1); White Blood Count 6.64 K/uL (4.8-10.8)
[2021-08-02 06:53] LABS: Albumin Level 3.3 gm/dl (3.4-5.0); Aspartate Aminotransferase 49 U/L (15-37); BUN Creatinine Ratio 21.7 (10-20); Bilirubin Direct < 0.1 mg/dl (0-0.2); Blood Urea Nitrogen 21 mg/dl (7-18); Calcium 8.6 mg/dl (8.5-10.1); Carbon Dioxide 25 mmol/L (21-32); Chloride 106 mmol/L (98-107); Est GFR (African American) 99.2 ml/min; Est GFR (Non-African American) 85.6 ml/min; Glucose 118 mg/dl (70-99); Sodium 139 mmol/L (136-145)
[2021-08-02 06:56] LABS: Alanine Aminotransferase 73 U/L (12-78); Alkaline Phosphatase 46 U/L (45-117); Bilirubin,Total 0.6 mg/dl (0.2-1); Total Protein 7.3 gm/dl (6.4-8.2)
[2021-08-02] MEDS: ALBUTEROL HFA 8 GM INHALER INH SCH ×2 (07:30→11:14)
[2021-08-02] MEDS: IPRATROPIUM BROMIDE HFA INHALER INH SCH ×2 (07:31→11:14)
[2021-08-02] MEDS: dexAMETHasone 6 MG in SYRINGE 0 ML IV SCH (08:29)
[2021-08-02] MEDS: ENOXAPARIN INJ 40 MG/0.4 ML SYR SQ SCH (08:38)
[2021-08-02] MEDS: guaiFENesin 600 MG TABCR PO SCH (08:38)
[2021-08-02] MEDS: INSULIN ASPART 100 UNITS/ML 3 ML PEN SC SCH ×2 (08:39→12:18)
[2021-08-02] MEDS: INSULIN GLARGINE SOLOSTAR 100 UNITS/ML 3 ML PEN SC SCH (08:39)
[2021-08-02] MEDS: MELOXICAM 7.5 MG TAB PO SCH (10:04)
--- NOTE | 2021-08-02 12:42 | Discharge Summary ---
Date of Service August 02, 2021 Admission HPI Per Admitting Provider Soto Reynolds is a 61yo male presenting with Covid-19 infection. Patient states that he started feeling ill approximately 1 week ago. He complains of subjective fever, cough productive for clear sputum as well as shortness of breath. He denies chest pain, palpitations, dizziness, abdominal pain, nausea, vomiting, diarrhea. Patient is not vaccinated against Covid. He is unsure of any sick contacts. He presents today because he reports getting out of the shower and wiping blood off his head with his towel. He is uncertain where the blood came from. Denies fall, trauma, cuts, bruises. ER physician states patient was tachycardic, tachypneic and ill in appearance upon arrival. He was given Dexamethasone. Complaining of shortness of breath, otherwise no complaints at this time. ER Course: Acetaminophen, Solumedrol, NSS Discharge Data Allergies Allergy/AdvReac Type Severity Reaction Status Date / Time tramadol Allergy Intermediate hives/rash Verified 08/01/21 00:28 Consultations 08/01/21 04:30 ED Decision to Admit Stat Ordered Studies 08/01/21 01:54 CT angio chest PE protocol Urgent Discharge Plan Discharge Items Reason For Visit: COVID-19, SOB Follow-up/Referrals: Judy Fountain CRNP [Primary Care Provider] - Medications and DC Order Prescriptions: No Action metformin 1,000 mg tablet 1,000 mg PO BID Qty: 180 RF: 3 simvastatin 20 mg tablet 20 mg PO QPM Qty: 90 RF: 3 meloxicam 7.5 mg tablet 7.5 mg PO BID Qty: 60 RF: 5 albuterol sulfate [Ventolin HFA] 90 mcg/actuation HFA aerosol inhaler 2 puff INHALATION Q4H PRN (Reason: Shortness Of Breath Or Wheezing) Qty: 8.5 RF: 5 Admission Data Admit Date/Time: 08/01/21 05:01 Attending Provider: Tee Barton Admit Provider: Mary Krishna Primary Care Provider: Judy Fountain Other Providers: Mary Krishna
== END 2021-08-02 14:15 | disposition home or self-care (01) ==
LOC: 2S 23:09 → ED 23:09 → SUATTDRO 08-01 05:01 → 2S 08-01 05:02 → 2E 08-01 18:39
DX: J45.909 Unspecified asthma, uncomplicated; Z88.5 Allergy status to narcotic agent; E78.00 Pure hypercholesterolemia, unspecified; E11.9 Type 2 diabetes mellitus without complications; I10 Essential (primary) hypertension; Z68.41 Body mass index [BMI] 40.0-44.9, adult; Z79.899 Other long term (current) drug therapy; Z87.891 Personal history of nicotine dependence; F17.210 Nicotine dependence, cigarettes, uncomplicated; E66.9 Obesity, unspecified; U07.1 COVID-19; G47.33 Obstructive sleep apnea (adult) (pediatric)

== ENCOUNTER 2022-11-26 20:55 | Inpatient (IN) ==
[2022-11-26 21:54] LABS: Basophils # (auto) 0.07 K/uL (0-0.2); Basophils % (auto) 0.5 %; Eosinophils # (auto) 0.14 K/uL (0-0.50); Eosinophils % (auto) 1.1 %; Hematocrit (blood only) 42.2 % (40.1-51.0); Hemoglobin 14.4 g/dl (14.0-18.0); Immature Granulocytes # (auto) 0.05 K/uL (0.00-0.02); Immature Granulocytes % (auto) 0.4 %; Lymphocytes # (auto) 1.59 K/uL (1.2-3.4); Lymphocytes % (auto) 12.3 %; Mean Corpuscular Hemoglobin 28.2 pg (25.0-34.0); Mean Corpuscular Hgb Conc 34.1 g/dL (32.0-36.0); Mean Corpuscular Volume 82.7 fL (80.0-100.0); Mean Platelet Volume 9.3 fL (9.4-12.4); Monocytes # (auto) 1.22 K/uL (0.24-0.82); Monocytes % (auto) 9.5 %; Neutrophils # (auto) 9.84 K/uL (1.4-6.5); Neutrophils % (auto) 76.2 %; Platelet Count 179 K/uL (130-400); RDW Coefficient of Variation 13.7 % (11.5-14.5); RDW Standard Deviation 41.2 fL (36.4-46.3); White Blood Count 12.91 K/ul (4.8-10.8)
[2022-11-26] MEDS ORDERED: SODIUM CHLORIDE 0.9% 1000ML 500 ML IV ONE (22:07)
[2022-11-26] MEDS ORDERED: ALBUT/IPRATROP 3MG/0.5MG NEB 3 ML VIAL NEB STA (22:07)
--- NOTE | 2022-11-26 22:09 | Emergency Department Note ---
History of Present Illness General Chief complaint: Shortness of Breath/Dyspnea Stated complaint: TEMP OF 102, DIZZINESS/LIGHTHEADED Time Seen by Provider: 11/26/22 21:55 History of Present Illness Maximum Pain Intensity: 5 This is a 62-year-old male that presents to the emergency department via private vehicle with complaints of "fever, dizziness, lightheadedness, cough, shortness of breath, headache". The patient notes that this past Saturday after returning home from work he developed lightheadedness, dizziness and a fever. He notes his fever has been between 102-103 F. He at times feel like he is going to pass out. He notes that he is short of breath particularly when he attempts to ambulate or exert himself. Patient notes that he is spitting mucus out when he coughs. He tried using breathing treatments at home with minimal relief. He notes a history of asthma, type 2 diabetes. Patient denies any chest pain. He notes that the headache is in the frontal region of his head. Current discomfort 5. Patient did take acetaminophen around 7:30 PM this evening. Home Medications Medication Instructions Recorded Confirmed Type albuterol sulfate 90 mcg/actuation 2 puff inhalation Q4H PRN 08/02/21 11/26/22 Rx aerosol inhaler (Ventolin HFA) Shortness Of Breath Or Wheezing Or Cough #8.5 grams metformin 1,000 mg tablet 1,000 mg PO BID #180 tabs 09/14/22 11/26/22 Rx simvastatin 20 mg tablet 20 mg PO QPM #90 tabs 09/14/22 11/26/22 Rx meloxicam 7.5 mg tablet 7.5 mg PO DAILY PRN low back pain 10/02/22 11/26/22 Rx #30 tabs Allergies Allergy/AdvReac Type Severity Reaction Status Date / Time tramadol Allergy Intermediate hives/rash Verified 11/26/22 23:29 Past Med/Surg History Medical History Asthma Asthma uses PRN inh 1-2 x mo on avg Bleeding hemorrhoids History of benign spinal cord tumor History of kidney stones Hyperlipidemia Nocturnal hypoxemia On home oxygen therapy 2L via CPAP at night Tooth infection abx therapy started 01/07 x 10 days Type 2 diabetes mellitus NIDDM Surgical History History of colonoscopy History of laminectomy History of uvulectomy Family History Father Heart disease Myocardial infarction Hypertension Asthma Mother Diabetes Arthritis Heart disease Myocardial infarction Unknown Diabetes Myocardial infarction Sister Diabetes Brother Colon cancer Diabetes Other No family history of adverse response to anesthesia No pertinent family history in first degree relatives Social History Smoking Status: Former smoker Tobacco Type: Cigarettes Age Started Using Tobacco: 13; Age Quit Using Tobacco: 57; packs per day: 1; Second Hand Exposure: No; Hx Alcohol Use: No Hx Substance Use: No Preferred Language: Bermudian Communication Ability: Effective Hearing Ability: Normal Color Maker Required: No Beliefs That Will Affect Care: None marital status: Current Living Situation: Family current occupational status: employed Feels Safe at Home: Yes Childhood Exposure to Second-Hand Smoke: Yes caffeine: No during the past year weight has: increased > 10 lbs Dental Care, Regularly: No Physical Activity Frequency: 5-6 Times per Week Seatbelt Use: never Sunscreen Use: No Assistive Devices: Glasses Review of Systems A total of 10 systems reviewed and were otherwise negative Physical Exam Vital Signs Vital Signs - 24 hr 11/26/22 20:56 11/26/22 21:58 11/26/22 21:58 Temperature 37.7 C H Temperature Source Temporal Artery Scan Pulse Rate 104 H Pulse Rate [Apical] Pulse Rate [Finger] Respiratory Rate 22 Respiratory Effort / Characteristics Non-Labored Spontaneous Short of Breath Respiratory Depth Normal Deep Respiratory Pattern Blood Pressure 150/81 H Blood Pressure [Right Arm] Blood Pressure Mean 104 Blood Pressure Mean [Right Arm] Blood Pressure Position Sitting Blood Pressure Position [Right Arm] Pulse Oximetry 94 94 Oxygen Delivery Method Room Air Room Air Room Air Oxygen Flow Rate 0 Sepsis Recent Fever Within 48 Hours Yes Sepsis New/Unexplained Change in Mental Status No Sepsis Action Taken by Nursing No Action Required 11/26/22 22:00 11/26/22 23:09 Temperature 37.7 C H Temperature Source Oral Pulse Rate Pulse Rate [Apical] 102 H Pulse Rate [Finger] 102 H Respiratory Rate 25 H 24 Respiratory Effort / Characteristics Non-Labored Spontaneous Spontaneous Short of Breath Respiratory Depth Normal Respiratory Pattern Regular Blood Pressure Blood Pressure [Right Arm] 133/77 Blood Pressure Mean Blood Pressure Mean [Right Arm] 95 Blood Pressure Position Blood Pressure Position [Right Arm] Sitting Pulse Oximetry 94 96 Oxygen Delivery Method Room Air Room Air Oxygen Flow Rate Sepsis Recent Fever Within 48 Hours Sepsis New/Unexplained Change in Mental Status Sepsis Action Taken by Nursing VITAL SIGNS - Vital signs and nursing notes were reviewed. Borderline febrile, mild elevated respiratory rate at 25 and mildly tachycardic at 102. GENERAL -62-year-old male appearing his stated age who is in no acute distress but is mildly tachypneic. Communicates well with provider and answers questions appropriately. SKIN - Without rashes. No meningeal or petechial rash. HEAD - NC/AT. EYES - PERRL with EOMI bilaterally. Sclera anicteric. EARS - No deformities of external structures noted on gross examination bilaterally. No pain elicited with palpation of the tragus bilaterally. External auditory canals without discharge or otorrhea. Tympanic membranes pearly degroot without retraction or bulging. No fluid or purulent material visualized behind the TM. Handle of malleus, umbo, cone of light, pars tensa/flaccid all easily visualized. NOSE - Midline and without cyanosis. No epistaxis or purulent drainage noted. Septum midline without deviation or septal hematoma noted. MOUTH/OROPHARYNX - Without perioral cyanosis. Buccal mucosa pink and moist and without leukoplakia. Tongue midline with equal elevation of palate bilaterally. No tonsillar hypertrophy, erythema, or exudates noted. Fair dentition noted. No drooling, stridor, trismus or tripoding. Normal phonation. NECK - No nuchal rigidity. LUNGS - Chest wall symmetric without accessory muscle use, intercostals retractions, or central cyanosis. Mild wheezing noted. CARDIAC - RRR with S1/S2. No murmur, rubs, or gallops appreciated. EXTREMITIES - No clubbing or peripheral cyanosis. +5/5 strength noted in UE/LE bilaterally. NEUROLOGIC - Cranial nerves II through XII grossly intact. PSYCH - A&O, and cooperates fully with examiner. Pt is very pleasant and in teracts well with examiner. Course Administered Medications Oseltamivir Phosphate (Oseltamivir Phosphate 75 Mg Cap) 75 mg PO BID MARYBETH Stop: 12/02/22 03:28 Last Admin: 11/27/22 04:09 Dose: 75 mg Documented By: CR Discontinued Medications Albuterol (Albut/Ipratrop 3mg/0.5mg Neb 3 Ml Vial) 3 ml NEB NOW STA; Protocol Stop: 11/26/22 22:08 Last Admin: 11/26/22 22:21 Dose: 3 ml Documented By: REDD Albuterol (Albut/Ipratrop 3mg/0.5mg Neb 3 Ml Vial) 12 ml NEB ONE ONE; Protocol Stop: 11/26/22 22:55 Last Admin: 11/26/22 23:08 Dose: 12 ml Documented By: KHLOE Sodium Chloride (Nss 1000ml) 500 mls @ 500 mls/hr IV .Q1H ONE Stop: 11/26/22 23:06 Last Infusion: 11/27/22 00:01 Dose: 0 mls/hr Documented By: Admin: 11/26/22 22:21 Dose: 500 mls/hr Documented By: REDD Medical Decision Making Laboratory Data Result diagrams: 11/26/22 21:39 11/26/22 21:39 Lab Results 11/26/22 11/26/22 11/26/22 Range/Units 21:02 21:39 21:39 WBC 12.91 H (4.8-10.8) K/ul RBC 5.10 (4.63-6.08) M/uL Hgb 14.4 (14.0-18.0) g/dl Hct 42.2 (40.1-51.0) % MCV 82.7 (80.0-100.0) fL MCH 28.2 (25.0-34.0) pg MCHC 34.1 (32.0-36.0) g/dL RDW Std Deviation 41.2 (36.4-46.3) fL RDW Coeff of Jacquelyn 13.7 (11.5-14.5) % Plt Count 179 (130-400) K/uL MPV 9.3 L (9.4-12.4) fL Immature Gran % (Auto) 0.4 % Neut % (Auto) 76.2 % Lymph % (Auto) 12.3 % Cole % (Auto) 9.5 % Eos % (Auto) 1.1 % Baso % (Auto) 0.5 % Neut # (Auto) 9.84 H (1.4-6.5) K/uL Lymph # (Auto) 1.59 (1.2-3.4) K/uL Cole # (Auto) 1.22 H (0.24-0.82) K/uL Eos # (Auto) 0.14 (0-0.50) K/uL Baso # (Auto) 0.07 (0-0.2) K/uL Immature Gran # (Auto) 0.05 H (0.00-0.02) K/uL Sodium 134 L (136-145) mmol/L Potassium 4.2 (3.5-5.1) mmol/L Chloride 101 (98-107) mmol/L Carbon Dioxide 23 (21-32) mmol/L Anion Gap 10 (3-11) BUN 16 (6-23) mg/dl Creatinine 0.85 (0.6-1.4) mg/dl Est Cr Clr Drug Dosing 117.2 ml/min Est GFR ( Amer) 109.0 ml/min Est GFR (Non-Af Amer) 94.0 ml/min BUN/Creatinine Ratio 18.8 (10-20) Glucose 118 H (70-99(Fasting)) mg/dl Lactate (0.4-2.0) mmol/L Calcium 8.7 (8.5-10.1) mg/dl Magnesium (1.7-2.4) mg/dl Total Bilirubin 1.3 H (0.2-1.0) mg/dl AST 37 (13-39) U/L ALT 40 (7-52) U/L Alkaline Phosphatase 60 (34-104) U/L Troponin I High Sens (0-20) pg/ml Total Protein 7.8 (6.0-8.3) gm/dl Albumin 4.0 (3.4-5.0) gm/dl Globulin 3.8 (2.5-4.0) gm/dl Albumin/Globulin Ratio 1.1 (0.9-2) Procalcitonin (0-0.5) ng/ml SARS-CoV-2 (PCR) NEGATIVE (Negative) Influenza Type A (PCR) Positive A* (Neg) Influenza Type B (PCR) Negative (Neg) RSV (RT-PCR) Negative (Neg) 11/26/22 11/26/22 11/26/22 Range/Units 21:40 21:40 22:25 WBC (4.8-10.8) K/ul RBC (4.63-6.08) M/uL Hgb (14.0-18.0) g/dl Hct (40.1-51.0) % MCV (80.0-100.0) fL MCH (25.0-34.0) pg MCHC (32.0-36.0) g/dL RDW Std Deviation (36.4-46.3) fL RDW Coeff of Jacquelyn (11.5-14.5) % Plt Count (130-400) K/uL MPV (9.4-12.4) fL Immature Gran % (Auto) % Neut % (Auto) % Lymph % (Auto) % Cole % (Auto) % Eos % (Auto) % Baso % (Auto) % Neut # (Auto) (1.4-6.5) K/uL Lymph # (Auto) (1.2-3.4) K/uL Cole # (Auto) (0.24-0.82) K/uL Eos # (Auto) (0-0.50) K/uL Baso # (Auto) (0-0.2) K/uL Immature Gran # (Auto) (0.00-0.02) K/uL Sodium (136-145) mmol/L Potassium (3.5-5.1) mmol/L Chloride (98-107) mmol/L Carbon Dioxide (21-32) mmol/L Anion Gap (3-11) BUN (6-23) mg/dl Creatinine (0.6-1.4) mg/dl Est Cr Clr Drug Dosing ml/min Est GFR ( Amer) ml/min Est GFR (Non-Af Amer) ml/min BUN/Creatinine Ratio (10-20) Glucose (70-99(Fasting)) mg/dl Lactate 0.8 (0.4-2.0) mmol/L Calcium (8.5-10.1) mg/dl Magnesium 2.0 (1.7-2.4) mg/dl Total Bilirubin (0.2-1.0) mg/dl AST (13-39) U/L ALT (7-52) U/L Alkaline Phosphatase (34-104) U/L Troponin I High Sens 7.0 (0-20) pg/ml Total Protein (6.0-8.3) gm/dl Albumin (3.4-5.0) gm/dl Globulin (2.5-4.0) gm/dl Albumin/Globulin Ratio (0.9-2) Procalcitonin 0.17 (0-0.5) ng/ml SARS-CoV-2 (PCR) (Negative) Influenza Type A (PCR) (Neg) Influenza Type B (PCR) (Neg) RSV (RT-PCR) (Neg) Imaging Data My Impression: Chest xray:No acute process compared to 08/01/21. MDM Narrative Patient was seen and evaluated as above in room A11b. Review was performed of nursing notes and vital signs. I did review pertinent previous visits and pat ient history. After obtaining a thorough history and physical examination the above work up was performed. Patient presents to us today for evaluation of a fever, headache, cough and shortness of breath. The patient does have a cough on examination and does appear to have mild increased work of breathing. Options of care were discussed with the patient. IV access was established. Labs were drawn. Labs reveal leukocytosis 12.91. No anemia. Mild hyponatremia 134. Mild hyperglycemia 118. T bili mildly elevated at 1.3. Troponin within normal range. Procalcitonin within normal range. Urinalysis does not suggest infection. Influenza testing positive. Chest x-ray was obtained per my interpretation reveals no acute process compared to previous. EKG reveals normal sinus rhythm, rate bundle-branch block. QTc 459. QRS 140. Patient while here was medicated with breathing treatments and had some improvement. He was also hydrated with normal saline. The patient upon reevaluation postinitial breathing treatment revealed he was doing well but the shortness of breath seem to return. Additional DuoNeb ordered. At this time in the setting of influenza and shortness of breath with tachypnea and underlying asthma history, I do believe that further evaluation and management in the inpatient setting is warranted. Case discussed with the hospitalist service. Patient amenable to plan of care. Please refer to further documentation regarding his stay. GCS: 15 In the evaluation and treatment of this patient the following differential diagnoses were entertained: OR, PE, pneumonia, viral illness, electrolyte disturbance, ACS, among others. Impression & Plan Influenza A, Shortness of breath Discharge Plan Visit Data Chief Complaint: Shortness of Breath/Dyspnea Stated Complaint: TEMP OF 102, DIZZINESS/LIGHTHEADED ED Provider: James Coto ED Midlevel Provider: Luis Fernando Brito Discharge Problem: Influenza A, Shortness of breath Patient Disposition: Admitted As Inpatient Condition: Good Discharge Instructions Interventions: ED Discharge Assessment Last Done: 11/27/22 03:09
[2022-11-26 22:17] LABS: Influenza B virus by PCR Negative (Neg); RSV by PCR Negative (Neg); SARS CoV2 RNA(COVID-19) Ceph NEGATIVE (Negative)
[2022-11-26 22:19] LABS: Albumin Globulin Ratio 1.1 (0.9-2); BUN Creatinine Ratio 18.8 (10-20); Bilirubin,Total 1.3 mg/dl (0.2-1.0); Calcium 8.7 mg/dl (8.5-10.1); Creatinine Clr Calc Pharmacy 117.2 ml/min; Globulin 3.8 gm/dl (2.5-4.0); Potassium 4.2 mmol/L (3.5-5.1); Total Protein 7.8 gm/dl (6.0-8.3)
[2022-11-26 22:44] LABS: Influenza A virus by PCR Positive (Neg)
[2022-11-26] MEDS ORDERED: ALBUT/IPRATROP 3MG/0.5MG NEB 3 ML VIAL NEB ONE (22:54)
--- NOTE | 2022-11-26 23:54 | History & Physical Report ---
Date of Service November 26, 2022 Assessment & Plan (1) Influenza A: (2) Acute respiratory failure with hypoxia: (3) Type 2 diabetes mellitus: (4) Morbid obesity with BMI of 40.0-44.9, adult: (5) Reactive airway disease: (6) Hyperlipidemia: Plan Acute respiratory with hypoxia/influenza A/asthma- Duonebs every 4 hours while awake and every 2 hours when necessary. Guaifenesin extended release 1200 mg p.o. twice daily Pulmicort Respules 0.5 mg inhaled twice daily Tamiflu 75 mg p.o. twice daily x5 days Nasal cannula oxygen, titrate to keep pulse ox 94-95% Diabetes mellitus- Hold metformin Avoid IV steroids or oral steroids, instead use Pulmicort Respules Placed on Accu-Cheks before meals and at bedtime with NovoLog coverage per scale Hyperlipidemia- Continue simvastatin 20 mg daily History of Present Illness Chief Complaint: The patient presents to the emergency department with 3 days of shortness of breath, dyspnea on exertion, intermittently productive cough, lightheadedness, dizziness, fever and headache after working outside in the cold. Primary Care Provider: CLYDE Gonzales The patient is a 62-year-old male possible history including diabetes mellitus, transaminitis, morbid obesity, COVID-19 infection, reactive airways disease, schwannoma of spinal cord, proteinuria, chronic low back pain, hyperlipidemia and nocturnal hypoxemia. He presents to the emergency department with symptoms as noted above. Significant abnormal laboratories: WBC 12.91, total bilirubin 1.3, RSV negative, COVID-19 negative. Patient is influenza A positive Allergies Allergy/AdvReac Type Severity Reaction Status Date / Time tramadol Allergy Intermediate hives/rash Verified 11/26/22 23:29 Home Medications Medication Instructions Recorded Confirmed Type albuterol sulfate 90 mcg/actuation 2 puff inhalation Q4H PRN 08/02/21 11/26/22 Rx aerosol inhaler (Ventolin HFA) Shortness Of Breath Or Wheezing Or Cough #8.5 grams metformin 1,000 mg tablet 1,000 mg PO BID #180 tabs 09/14/22 11/26/22 Rx simvastatin 20 mg tablet 20 mg PO QPM #90 tabs 09/14/22 11/26/22 Rx meloxicam 7.5 mg tablet 7.5 mg PO DAILY PRN low back pain 10/02/22 11/26/22 Rx #30 tabs Past Med/Surg History Medical History (Updated 11/27/22 @ 02:14 by Zach Liriano MD) Asthma Asthma uses PRN inh 1-2 x mo on avg Bleeding hemorrhoids History of benign spinal cord tumor History of kidney stones Hyperlipidemia Nocturnal hypoxemia On home oxygen therapy 2L via CPAP at night Tooth infection abx therapy started 01/07 x 10 days Type 2 diabetes mellitus NIDDM Surgical History History of colonoscopy History of laminectomy History of uvulectomy Family History Father Heart disease Myocardial infarction Hypertension Asthma Mother Diabetes Arthritis Heart disease Myocardial infarction Unknown Diabetes Myocardial infarction Sister Diabetes Brother Colon cancer Diabetes Other No family history of adverse response to anesthesia No pertinent family history in first degree relatives Social History Smoking Status: Never smoker Tobacco Type: Cigarettes Age Started Using Tobacco: 13; Age Quit Using Tobacco: 57; packs per day: 1; Second Hand Exposure: Yes; Hx Alcohol Use: No Hx Substance Use: No Preferred Language: Kinyarwanda Communication Ability: Effective Hearing Ability: Normal Nurse Intern Required: No Beliefs That Will Affect Care: None marital status: Current Living Situation: Significant Other current occupational status: employed Feels Safe at Home: Yes Childhood Exposure to Second-Hand Smoke: Yes caffeine: No during the past year weight has: increased > 10 lbs Dental Care, Regularly: No Physical Activity Frequency: 5-6 Times per Week Seatbelt Use: never Sunscreen Use: No Assistive Devices: Glasses Review of Systems Review of Systems: The patient denies chest pain, palpitations, lower extremity swelling, fevers, chills, sweats, weight change, fatigue, nausea, vomiting, diarrhea , constipation, abdominal pain, pelvic pain, blood in urine or stool, dysuria, urinary frequency or urgency, memory loss, loss of consciousness, rash, abnormal bruising or bleeding, imbalance, focal or generalized weakness, numbness or tingling in arms or legs, generalized arthralgias or myalgias, back or neck pain, or night sweats. The review of systems is otherwise negative other than for that already noted above, and at least 10 systems have been reviewed. Physical Exam Physical Exam: The patient is awake, alert and oriented 3, well developed and well nourished, normocephalic and atraumatic, lying in bed and in no acute distress. HEENT--PERRL, EOMI, mucous membranes and oropharynx dry. Neck--supple. No JVD. No bruits. Thyroid normal, trachea midline, no adenopathy. Heart--normal S1 and S2. No murmurs, rubs or gallops. Lungs--coarse breath sounds bilaterally with wheezes. No respiratory distress, no accessory muscle use. Abdomen--normal bowel sounds and soft. Nontender. Nondistended. Obese Extremities--no cyanosis or clubbing. No edema. Dermatologic--normal skin turgor, normal color, no abnormal lymph nodes, no rash. Neurologic--cranial nerves II through XII grossly intact. Rheumatologic--normal range of motion. Psychiatric--normal affect. Results & Data Results & Data ([facility]) Vital Signs (Past 12 Hours) Vital Signs Temp Pulse Pulse Pulse Resp BP BP 11/26/22 23:09 102 H 24 11/26/22 22:00 37.7 C H 102 H 25 H 133/77 11/26/22 21:58 11/26/22 21:58 11/26/22 20:56 37.7 C H 104 H 22 150/81 H Pulse Ox O2 Del Method O2 Flow Rate 11/26/22 23:09 96 Room Air 11/26/22 22:00 94 Room Air 11/26/22 21:58 Room Air 11/26/22 21:58 94 Room Air 0 11/26/22 20:56 94 Room Air Laboratory Results Laboratory Results WBC 12.91 K/ul (4.8-10.8) H 11/26/22 21:39 RBC 5.10 M/uL (4.63-6.08) 11/26/22 21:39 Hgb 14.4 g/dl (14.0-18.0) 11/26/22 21:39 Hct 42.2 % (40.1-51.0) 11/26/22 21:39 MCV 82.7 fL (80.0-100.0) 11/26/22 21:39 MCH 28.2 pg (25.0-34.0) 11/26/22 21:39 MCHC 34.1 g/dL (32.0-36.0) 11/26/22 21:39 RDW Std Deviation 41.2 fL (36.4-46.3) 11/26/22 21:39 RDW Coeff of Jacquelyn 13.7 % (11.5-14.5) 11/26/22 21:39 Plt Count 179 K/uL (130-400) 11/26/22 21:39 MPV 9.3 fL (9.4-12.4) L 11/26/22 21:39 Immature Gran % (Auto) 0.4 % 11/26/22 21:39 Neut % (Auto) 76.2 % 11/26/22 21:39 Lymph % (Auto) 12.3 % 11/26/22 21:39 [place] % (Auto) 9.5 % 11/26/22 21:39 Eos % (Auto) 1.1 % 11/26/22 21:39 Baso % (Auto) 0.5 % 11/26/22 21:39 Neut # (Auto) 9.84 K/uL (1.4-6.5) H 11/26/22 21:39 Lymph # (Auto) 1.59 K/uL (1.2-3.4) 11/26/22 21:39 [place] # (Auto) 1.22 K/uL (0.24-0.82) H 11/26/22 21:39 Eos # (Auto) 0.14 K/uL (0-0.50) 11/26/22 21:39 Baso # (Auto) 0.07 K/uL (0-0.2) 11/26/22 21:39 Immature Gran # (Auto) 0.05 K/uL (0.00-0.02) H 11/26/22 21:39 Sodium 134 mmol/L (136-145) L 11/26/22 21:39 Potassium 4.2 mmol/L (3.5-5.1) 11/26/22 21:39 Chloride 101 mmol/L (98-107) 11/26/22 21:39 Carbon Dioxide 23 mmol/L (21-32) 11/26/22 21:39 Anion Gap 10 (3-11) 11/26/22 21:39 BUN 16 mg/dl (6-23) 11/26/22 21:39 Creatinine 0.85 mg/dl (0.6-1.4) 11/26/22 21:39 Est Cr Clr Drug Dosing 117.2 ml/min 11/26/22 21:39 Est GFR ( Amer) 109.0 ml/min 11/26/22 21:39 Est GFR (Non-Af Amer) 94.0 ml/min 11/26/22 21:39 BUN/Creatinine Ratio 18.8 (10-20) 11/26/22 21:39 Glucose 118 mg/dl (70-99(Fasting)) H 11/26/22 21:39 Lactate 0.8 mmol/L (0.4-2.0) 11/26/22 22:25 Calcium 8.7 mg/dl (8.5-10.1) 11/26/22 21:39 Magnesium 2.0 mg/dl (1.7-2.4) 11/26/22 21:40 Total Bilirubin 1.3 mg/dl (0.2-1.0) H 11/26/22 21:39 AST 37 U/L (13-39) 11/26/22 21:39 ALT 40 U/L (7-52) 11/26/22 21:39 Alkaline Phosphatase 60 U/L (34-104) 11/26/22 21:39 Troponin I High Sens 7.0 pg/ml (0-20) 11/26/22 21:40 Total Protein 7.8 gm/dl (6.0-8.3) 11/26/22 21:39 Albumin 4.0 gm/dl (3.4-5.0) 11/26/22 21:39 Globulin 3.8 gm/dl (2.5-4.0) 11/26/22 21:39 Albumin/Globulin Ratio 1.1 (0.9-2) 11/26/22 21:39 Procalcitonin 0.17 ng/ml (0-0.5) 11/26/22 21:40 SARS-CoV-2 (PCR) NEGATIVE (Negative) 11/26/22 21:02 Influenza Type A (PCR) Positive (Neg) A* 11/26/22 21:02 Influenza Type B (PCR) Negative (Neg) 11/26/22 21:02 RSV (RT-PCR) Negative (Neg) 11/26/22 21:02 Code Status & VTE Plan Code Status Full code VTE Prophylaxis Plan VTE Prophylaxis will be ordered: Yes
--- NOTE | 2022-11-27 02:17 | Billing Data ---
Date of Service November 27, 2022 Coding Level of Care Code 58169 Initial Inpt Care Lvl 3
[2022-11-27 03:00] LABS: Appearance Urine Clear (Clear); Bacteria Urine Automated Negative (Negative); Bilirubin Urine Negative (Negative); Blood Urine Negative (Negative); Cast Urine Automated 0 /lpf (0-5); Color Urine Dark Yellow; Glucose Urine UA Negative (Negative); Ketones Urine Trace (Negative); Leukocyte Esterase Urine Trace (Negative); Nitrite Urine Negative (Negative); Protein Urine 2+ (Negative); RBC Urine Automated 0-4 /hpf (0-4); Specific Gravity Urine 1.024 (1.000-1.030); Urobilinogen Urine Negative (Negative); pH Urine 5.5 (4.5-7.5)
[2022-11-27] MEDS ORDERED: GLUCOSE 10 TAB/TUBE PO PRN (03:29)
[2022-11-27] MEDS ORDERED: GLUCOSE 40% GEL 15 GM TUBE PO PRN (03:29)
[2022-11-27] MEDS ORDERED: CARBOHYDRATES FOR HYPOGLYCEMIA PO PRN (03:29)
[2022-11-27] MEDS ORDERED: DEXTROSE 50% 50 ML SYRINGE IV PRN (03:29)
[2022-11-27] MEDS ORDERED: ONDANSETRON INJ 2 MG/ML 2 ML VIAL IV PRN (03:29)
[2022-11-27] MEDS ORDERED: GLUCAGON FOR INJ 1 MG VIAL SQ PRN (03:29)
[2022-11-27] MEDS: OSELTAMIVIR PHOSPHATE 75 MG CAP PO SCH ×3 (04:09→20:38)
[2022-11-27] MEDS: guaiFENesin/CODEINE 100MG/10MG 5ML UDC PO PRN (05:34)
[2022-11-27 06:51] LABS: Albumin Level 3.6 gm/dl (3.4-5.0); BUN Creatinine Ratio 17.4 (10-20); Calcium 8.1 mg/dl (8.5-10.1); Creatinine Clr Calc Pharmacy 109.1 ml/min; Est GFR (African American) 103.7 ml/min; Est GFR (Non-African American) 89.5 ml/min; Magnesium 1.9 mg/dl (1.7-2.4); Phosphorus 3.2 mg/dl (2.5-4.9); Potassium 3.8 mmol/L (3.5-5.1)
[2022-11-27] MEDS: ALBUT/IPRATROP 3MG/0.5MG NEB 3 ML VIAL NEB SCH ×4 (07:07→19:10)
[2022-11-27] MEDS: BUDESONIDE 0.5 MG/2 ML VIAL (PULMICORT) NEB SCH ×2 (07:07→19:10)
[2022-11-27 07:09] LABS: Estimated Average Glucose 154 mg/dl
[2022-11-27 07:52] LABS: Basophils # (auto) 0.04 K/uL (0-0.2); Basophils % (auto) 0.3 %; Eosinophils # (auto) 0.08 K/uL (0-0.50); Eosinophils % (auto) 0.7 %; Hematocrit (blood only) 38.8 % (40.1-51.0); Hemoglobin 13.2 g/dl (14.0-18.0); Immature Granulocytes # (auto) 0.05 K/uL (0.00-0.02); Immature Granulocytes % (auto) 0.4 %; Lymphocytes # (auto) 1.54 K/uL (1.2-3.4); Lymphocytes % (auto) 12.7 %; Mean Corpuscular Hemoglobin 28.3 pg (25.0-34.0); Mean Corpuscular Volume 83.3 fL (80.0-100.0); Mean Platelet Volume 9.8 fL (9.4-12.4); Monocytes # (auto) 0.98 K/uL (0.24-0.82); Monocytes % (auto) 8.1 %; Neutrophils # (auto) 9.46 K/uL (1.4-6.5); Neutrophils % (auto) 77.8 %; Platelet Count 180 K/uL (130-400); RDW Coefficient of Variation 13.9 % (11.5-14.5); RDW Standard Deviation 42.1 fL (36.4-46.3); Red Blood Count 4.66 M/uL (4.63-6.08); White Blood Count 12.15 K/ul (4.8-10.8)
[2022-11-27] MEDS: guaiFENesin 600 MG TABCR PO SCH ×2 (07:58→20:38)
[2022-11-27] MEDS: ACETAMINOPHEN 325 MG TAB PO PRN (08:05)
--- NOTE | 2022-11-27 08:34 | XRay Report ---
XR chest 1V portable CLINICAL HISTORY: cough, fever, headache TECHNIQUE: Single frontal radiograph of the chest was obtained. Comparison: Comparison is made to chest radiograph 08/01/2021 FINDINGS: No lines and tubes are seen. The cardiomediastinal silhouette is stable. The lungs are clear. No evid ence of pleural effusion or pneumothorax. IMPRESSION: No acute abnormalities and in particular no evidence of pneumonia. ACT 112: Negative or not required by law. Electronically signed by: Oneal Giron M.D. 11/27/2022 8:32 AM
[2022-11-27] MEDS ORDERED: guaiFENesin 600 MG TABCR PO SCH (09:00)
[2022-11-27] MEDS: INSULIN ASPART PER UNIT SC SCH ×4 (10:24→20:38)
--- NOTE | 2022-11-27 12:42 | Electrocardiogram Report ---
Test Reason : Blood Pressure : / mmHG Vent. Rate : 099 BPM Atrial Rate : 099 BPM P-R Int : 144 ms QRS Dur : 140 ms QT Int : 358 ms P-R-T Axes : 021 007 024 degrees QTc Int : 459 ms Poor data quality, interpretation may be adversely affected Normal sinus rhythm Right bundle branch block Abnormal ECG When compared with ECG of 31-JUL-2021 23:56, No significant change was found Confirmed by Sidney Lewis ([id number]) on 11/27/2022 12:42:19 PM Referred By: REFERRED SELF Confirmed By:Sidney Lewis
--- NOTE | 2022-11-27 14:25 | Hospitalist Progress Note ---
Date of Service November 27, 2022 Assessment & Plan (1) Influenza A: Plan: day #1-2/5 of tamiflu BID. initial cxr without complicating pneumonia. repeated 2-view cxr today - still no pneumonia. has h/o asthma but surprisingly no wheezing. send sputum for culture. cont bronchodilators. cont mucinex and cough syrup, etc. supportive care. droplet precautions. (2) Type 2 diabetes mellitus: Plan: a1c 7% novolog SSI (3) Morbid obesity with BMI of 40.0-44.9, adult: Plan: BMI 40.9 (4) Reactive airway disease: Plan: h/o asthma if he develops wheezing, dyspnea, etc - would benefit from PO prednisone cont bronchodilators cont budesonide BID (5) Hyperlipidemia: Plan: statin Plan DVT proph - add lovenox 40mg BID home tomorrow if improving ? Admission and Anticipated Discharge Date Admission Date: November 26, 2022 Subjective patient "feels better" but still with severe cough coughing up yellow sputum (copious) denies dyspnea at rest or with exertion feels congested in sinuses mild sore throat no chest pain eating well - 100% of meals Review of Systems Review of Systems: gen - no fevers or chills cv - no orthopnea or cp pulm - no wheezing GI - no vomiting Physical Exam Physical Exam: gen - severe coughing fits; in between fits he is NAD; obese mouth - MMM throat - mild erythema neck - no JVD heart - RRR, s1 s2, no murmur lungs - CTA b/l, no rales, no wheeze; severe cough abd - soft NT ND BS+ ext - no edema, pulses 2+ b/l psych - a/o x 3 Results & Data Results & Data ([facility]) Vital Signs (Past 12 Hours) Vital Signs Temp Pulse Pulse Resp BP Pulse Ox Pulse Ox 11/27/22 11:23 36.5 C 83 18 132/71 96 11/27/22 10:16 90 18 97 11/27/22 07:32 11/27/22 07:21 36.4 C L 93 H 20 146/74 H 95 11/27/22 07:09 71 18 95 11/27/22 04:00 11/27/22 03:29 37.7 C H 99 H 20 136/86 93 11/27/22 03:38 99 H 11/27/22 03:29 97 11/27/22 03:30 37.7 C H 99 H 20 136/86 97 O2 Del Method O2 Del Method O2 Flow Rate O2 Flow Rate 11/27/22 11:23 Nasal Cannula 2 11/27/22 10:16 Nasal Cannula 2 11/27/22 07:32 Nasal Cannula 2 11/27/22 07:21 Nasal Cannula 2 11/27/22 07:09 Room Air 11/27/22 04:00 Nasal Cannula 1 11/27/22 03:29 Room Air 11/27/22 03:38 11/27/22 03:29 Nasal Cannula 1 11/27/22 03:30 Nasal Cannula 1 Laboratory Results Laboratory Results - last 24 hr 11/26/22 11/26/22 11/26/22 21:02 21:39 21:39 WBC 12.91 H RBC 5.10 Hgb 14.4 Hct 42.2 MCV 82.7 MCH 28.2 MCHC 34.1 RDW Std Deviation 41.2 RDW Coeff of Jacquelyn 13.7 Plt Count 179 MPV 9.3 L Immature Gran % (Auto) 0.4 Neut % (Auto) 76.2 Lymph % (Auto) 12.3 Clayton % (Auto) 9.5 Eos % (Auto) 1.1 Baso % (Auto) 0.5 Neut # (Auto) 9.84 H Lymph # (Auto) 1.59 Clayton # (Auto) 1.22 H Eos # (Auto) 0.14 Baso # (Auto) 0.07 Immature Gran # (Auto) 0.05 H Sodium 134 L Potassium 4.2 Chloride 101 Carbon Dioxide 23 Anion Gap 10 BUN 16 Creatinine 0.85 Est Cr Clr Drug Dosing 117.2 Est GFR ( Amer) 109.0 Est GFR (Non-Af Amer) 94.0 BUN/Creatinine Ratio 18.8 Glucose 118 H POC Glucose Estimat Average Glucose Hemoglobin A1c Lactate Calcium 8.7 Phosphorus Magnesium Total Bilirubin 1.3 H AST 37 ALT 40 Alkaline Phosphatase 60 Troponin I High Sens Total Protein 7.8 Albumin 4.0 Globulin 3.8 Albumin/Globulin Ratio 1.1 Procalcitonin Urine Color Urine Appearance Urine pH Ur Specific Alsey Urine Protein Urine Glucose (UA) Urine Ketones Urine Blood Urine Nitrite Urine Bilirubin Urine Urobilinogen Ur Leukocyte Esterase Urine WBC (Auto) Urine RBC (Auto) U Hyaline Cast (Auto) U Epithel Cells (Auto) Urine Bacteria (Auto) SARS-CoV-2 (PCR) NEGATIVE Influenza Type A (PCR) Positive A* Influenza Type B (PCR) Negative RSV (RT-PCR) Negative 11/26/22 11/26/22 11/26/22 21:40 21:40 22:25 WBC RBC Hgb Hct MCV MCH MCHC RDW Std Deviation RDW Coeff of Jacquelyn Plt Count MPV Immature Gran % (Auto) Neut % (Auto) Lymph % (Auto) Clayton % (Auto) Eos % (Auto) Baso % (Auto) Neut # (Auto) Lymph # (Auto) Clayton # (Auto) Eos # (Auto) Baso # (Auto) Immature Gran # (Auto) Sodium Potassium Chloride Carbon Dioxide Anion Gap BUN Creatinine Est Cr Clr Drug Dosing Est GFR ( Amer) Est GFR (Non-Af Amer) BUN/Creatinine Ratio Glucose POC Glucose Estimat Average Glucose Hemoglobin A1c Lactate 0.8 Calcium Phosphorus Magnesium 2.0 Total Bilirubin AST ALT Alkaline Phosphatase Troponin I High Sens 7.0 Total Protein Albumin Globulin Albumin/Globulin Ratio Procalcitonin 0.17 Urine Color Urine Appearance Urine pH Ur Specific Alsey Urine Protein Urine Glucose (UA) Urine Ketones Urine Blood Urine Nitrite Urine Bilirubin Urine Urobilinogen Ur Leukocyte Esterase Urine WBC (Auto) Urine RBC (Auto) U Hyaline Cast (Auto) U Epithel Cells (Auto) Urine Bacteria (Auto) SARS-CoV-2 (PCR) Influenza Type A (PCR) Influenza Type B (PCR) RSV (RT-PCR) 11/27/22 11/27/22 11/27/22 02:48 03:53 05:29 WBC 12.15 H RBC 4.66 Hgb 13.2 L Hct 38.8 L MCV 83.3 MCH 28.3 MCHC 34.0 RDW Std Deviation 42.1 RDW Coeff of Jacquelyn 13.9 Plt Count 180 MPV 9.8 Immature Gran % (Auto) 0.4 Neut % (Auto) 77.8 Lymph % (Auto) 12.7 Clayton % (Auto) 8.1 Eos % (Auto) 0.7 Baso % (Auto) 0.3 Neut # (Auto) 9.46 H Lymph # (Auto) 1.54 Clayton # (Auto) 0.98 H Eos # (Auto) 0.08 Baso # (Auto) 0.04 Immature Gran # (Auto) 0.05 H Sodium Potassium Chloride Carbon Dioxide Anion Gap BUN Creatinine Est Cr Clr Drug Dosing Est GFR ( Amer) Est GFR (Non-Af Amer) BUN/Creatinine Ratio Glucose POC Glucose 174 H Estimat Average Glucose Hemoglobin A1c Lactate Calcium Phosphorus Magnesium Total Bilirubin AST ALT Alkaline Phosphatase Troponin I High Sens Total Protein Albumin Globulin Albumin/Globulin Ratio Procalcitonin Urine Color Dark Yellow Urine Appearance Clear Urine pH 5.5 Ur Specific Alsey 1.024 Urine Protein 2+ H Urine Glucose (UA) Negative Urine Ketones Trace H Urine Blood Negative Urine Nitrite Negative Urine Bilirubin Negative Urine Urobilinogen Negative Ur Leukocyte Esterase Trace H Urine WBC (Auto) 1-5 Urine RBC (Auto) 0-4 U Hyaline Cast (Auto) 0 U Epithel Cells (Auto) 5-10 H Urine Bacteria (Auto) Negative SARS-CoV-2 (PCR) Influenza Type A (PCR) Influenza Type B (PCR) RSV (RT-PCR) 11/27/22 11/27/22 11/27/22 05:29 05:29 07:23 WBC RBC Hgb Hct MCV MCH MCHC RDW Std Deviation RDW Coeff of Jacquelyn Plt Count MPV Immature Gran % (Auto) Neut % (Auto) Lymph % (Auto) Clayton % (Auto) Eos % (Auto) Baso % (Auto) Neut # (Auto) Lymph # (Auto) Clayton # (Auto) Eos # (Auto) Baso # (Auto) Immature Gran # (Auto) Sodium 133 L Potassium 3.8 Chloride 100 Carbon Dioxide 23 Anion Gap 10 BUN 16 Creatinine 0.92 Est Cr Clr Drug Dosing 109.1 Est GFR ( Amer) 103.7 Est GFR (Non-Af Amer) 89.5 BUN/Creatinine Ratio 17.4 Glucose 173 H POC Glucose 114 H Estimat Average Glucose 154 Hemoglobin A1c 7.0 H Lactate Calcium 8.1 L Phosphorus 3.2 Magnesium 1.9 Total Bilirubin AST ALT Alkaline Phosphatase Troponin I High Sens Total Protein Albumin 3.6 Globulin Albumin/Globulin Ratio Procalcitonin Urine Color Urine Appearance Urine pH Ur Specific Alsey Urine Protein Urine Glucose (UA) Urine Ketones Urine Blood Urine Nitrite Urine Bilirubin Urine Urobilinogen Ur Leukocyte Esterase Urine WBC (Auto) Urine RBC (Auto) U Hyaline Cast (Auto) U Epithel Cells (Auto) Urine Bacteria (Auto) SARS-CoV-2 (PCR) Influenza Type A (PCR) Influenza Type B (PCR) RSV (RT-PCR) 11/27/22 11:22 WBC RBC Hgb Hct MCV MCH MCHC RDW Std Deviation RDW Coeff of Jacquelyn Plt Count MPV Immature Gran % (Auto) Neut % (Auto) Lymph % (Auto) Clayton % (Auto) Eos % (Auto) Baso % (Auto) Neut # (Auto) Lymph # (Auto) Clayton # (Auto) Eos # (Auto) Baso # (Auto) Immature Gran # (Auto) Sodium Potassium Chloride Carbon Dioxide Anion Gap BUN Creatinine Est Cr Clr Drug Dosing Est GFR ( Amer) Est GFR (Non-Af Amer) BUN/Creatinine Ratio Glucose POC Glucose 162 H Estimat Average Glucose Hemoglobin A1c Lactate Calcium Phosphorus Magnesium Total Bilirubin AST ALT Alkaline Phosphatase Troponin I High Sens Total Protein Albumin Globulin Albumin/Globulin Ratio Procalcitonin Urine Color Urine Appearance Urine pH Ur Specific Alsey Urine Protein Urine Glucose (UA) Urine Ketones Urine Blood Urine Nitrite Urine Bilirubin Urine Urobilinogen Ur Leukocyte Esterase Urine WBC (Auto) Urine RBC (Auto) U Hyaline Cast (Auto) U Epithel Cells (Auto) Urine Bacteria (Auto) SARS-CoV-2 (PCR) Influenza Type A (PCR) Influenza Type B (PCR) RSV (RT-PCR) PG Care Time/CCT Total # of Minutes Spent Total Time Spent with Patient: Total time spent is greater than 50% in coordination of care (as documented) at patient's floor/unit and/or counseling patient: Coding Level of Care Code 57056 SUB INP/OBS CARE 2/35MIN Diagnoses Influenza A J10.1 Type 2 diabetes mellitus E11.9 Morbid obesity with BMI of 40.0-44.9, adult E66.01; Z68.41 Reactive airway disease J45.909 Hyperlipidemia E78.5
--- NOTE | 2022-11-27 15:49 | XRay Report ---
XR chest 2V PA/lateral HISTORY: 62 years-old Male fluA infection; severe cough; eval pneumonia acute cough COMPARISON: Chest radiograph November 26, 2022 TECHNIQUE: PA and lateral views of the chest FINDINGS: Cardiomediastinal silhouettes are within normal limits. No pneumothorax, pleural effusion, airspace c onsolidation or overt pulmonary edema. Degenerative changes of the shoulders and spine. IMPRESSION: No acute process. ACT 112: Negative or not required by law. The above report was generated using voice recognition software. It may contain grammatical, syntax o r spelling errors. Electronically signed by: Moisés Yen M.D. 11/27/2022 3:47 PM
[2022-11-27] MEDS: SIMVASTATIN 20 MG TAB PO SCH (20:38)
[2022-11-28] MEDS: ALBUT/IPRATROP 3MG/0.5MG NEB 3 ML VIAL NEB SCH ×2 (05:24→10:28)
[2022-11-28] MEDS: BUDESONIDE 0.5 MG/2 ML VIAL (PULMICORT) NEB SCH (05:24)
[2022-11-28 08:01] LABS: Basophils # (auto) 0.04 K/uL (0-0.2); Basophils % (auto) 0.3 %; Eosinophils # (auto) 0.18 K/uL (0-0.50); Eosinophils % (auto) 1.4 %; Hematocrit (blood only) 37.2 % (40.1-51.0); Hemoglobin 12.3 g/dl (14.0-18.0); Immature Granulocytes # (auto) 0.15 K/uL (0.00-0.02); Immature Granulocytes % (auto) 1.2 %; Lymphocytes % (auto) 13.4 %; Mean Corpuscular Hgb Conc 33.1 g/dL (32.0-36.0); Mean Corpuscular Volume 84.7 fL (80.0-100.0); Mean Platelet Volume 9.5 fL (9.4-12.4); Monocytes # (auto) 1.05 K/uL (0.24-0.82); Monocytes % (auto) 8.3 %; Neutrophils # (auto) 9.55 K/uL (1.4-6.5); Neutrophils % (auto) 75.4 %; Platelet Count 207 K/uL (130-400); RDW Standard Deviation 43.1 fL (36.4-46.3); Red Blood Count 4.39 M/uL (4.63-6.08); White Blood Count 12.67 K/ul (4.8-10.8)
[2022-11-28] MEDS: guaiFENesin 600 MG TABCR PO SCH ×2 (08:08→20:28)
[2022-11-28] MEDS: OSELTAMIVIR PHOSPHATE 75 MG CAP PO SCH ×2 (08:08→20:28)
[2022-11-28] MEDS: ACETAMINOPHEN 325 MG TAB PO PRN (08:11)
[2022-11-28 08:27] LABS: Albumin Level 3.6 gm/dl (3.4-5.0); Calcium 8.4 mg/dl (8.5-10.1); Creatinine Clr Calc Pharmacy 104.9 ml/min; Est GFR (Non-African American) 87.2 ml/min; Phosphorus 3.3 mg/dl (2.5-4.9); Potassium 4.1 mmol/L (3.5-5.1)
[2022-11-28] MEDS: INSULIN ASPART PER UNIT SC SCH ×4 (08:32→20:39)
[2022-11-28] MEDS: ENOXAPARIN INJ 40 MG/0.4 ML SYR SQ SCH ×2 (10:22→20:29)
[2022-11-28] MEDS ORDERED: ALBUT/IPRATROP 3MG/0.5MG NEB 3 ML VIAL NEB PRN (10:53)
[2022-11-28] MEDS ORDERED: BUDESONIDE 0.5 MG/2 ML VIAL (PULMICORT) NEB PRN (10:54)
[2022-11-28] MEDS: dexAMETHasone 6 MG in SYRINGE 0 ML IV SCH (13:40)
--- NOTE | 2022-11-28 20:12 | Hospitalist Progress Note ---
Date of Service November 28, 2022 Assessment & Plan (1) Influenza A: Plan: day #2-3/5 of tamiflu BID. initial cxr without complicating pneumonia. repeated 2-view cxr yesterday - still no pneumonia. has h/o " asthma " but he reports that his cough and pulmonary symptoms are worse with albuterol ?? he has long standing prior tobacco use history - suspect he has COPD rather than asthma, and some folks with COPD do not have a bronchodilator response. stop albuterol. cont mucinex and cough syrup, etc. he is about 7 days into his flu illness - actual flu should be resolving. lingering cough will continue. in the event he has underlying, undiagnosed COPD and due to severe cough will start dexamethasone 6mg IV daily. (2) Type 2 diabetes mellitus: Plan: a1c 7% novolog SSI (3) Morbid obesity with BMI of 40.0-44.9, adult: Plan: BMI 40.9 (4) Reactive airway disease: Plan: h/o asthma - see #1 discussion needs PFTs to establish a dx of COPD vs asthma vs other stop albuterol at his request start steroids as above (5) Hyperlipidemia: Plan: statin (6) LAVONNE (obstructive sleep apnea): Plan: uses CPAP with blended O2 at home Plan DVT proph = lovenox 40mg BID home tomorrow ? Admission and Anticipated Discharge Date Admission Date: November 26, 2022 Subjective main complaint is severe cough with some sputum production no dyspnea at rest I had nursing walk him in hallway - mild MAAGNA but sats stayed 90% or higher entire walk he is eating well mild sore throat no new complaints feels he needs another day in the hospital tele overnight wnl Review of Systems Review of Systems: gen - no fevers or chills cv - no chest pain pulm - states the albuterol makes him feel worse and that it makes his cough worse; has never had PFTs GI - no N/V Physical Exam Physical Exam: gen - severe coughing fits still; in between fits he is NAD; obese mouth - MMM throat - mild erythema neck - no JVD heart - RRR, s1 s2, no murmur lungs - no rales; scattered scant end-expiratory wheeze; severe cough at times abd - soft NT ND BS+ ext - no edema, pulses 2+ b/l psych - a/o x 3 Results & Data Results & Data ([facility]) Vital Signs (Past 12 Hours) Vital Signs Temp Pulse Resp BP BP Pulse Ox O2 Del Method 11/28/22 19:48 37.3 C 81 19 145/77 H 96 Room Air 11/28/22 15:22 37.4 C 85 20 124/75 93 Room Air 11/28/22 11:38 36.8 C 80 20 127/73 97 Room Air 11/28/22 10:29 78 18 98 Nasal Cannula O2 Flow Rate 11/28/22 19:48 11/28/22 15:22 11/28/22 11:38 11/28/22 10:29 2 Laboratory Results Laboratory Results - last 24 hr 11/27/22 11/28/22 11/28/22 20:21 07:25 07:35 WBC 12.67 H RBC 4.39 L Hgb 12.3 L Hct 37.2 L MCV 84.7 MCH 28.0 MCHC 33.1 RDW Std Deviation 43.1 RDW Coeff of Jacquelyn 14.0 Plt Count 207 MPV 9.5 Immature Gran % (Auto) 1.2 Neut % (Auto) 75.4 Lymph % (Auto) 13.4 Morrill % (Auto) 8.3 Eos % (Auto) 1.4 Baso % (Auto) 0.3 Neut # (Auto) 9.55 H Lymph # (Auto) 1.70 Morrill # (Auto) 1.05 H Eos # (Auto) 0.18 Baso # (Auto) 0.04 Immature Gran # (Auto) 0.15 H Sodium Potassium Chloride Carbon Dioxide Anion Gap BUN Creatinine Est Cr Clr Drug Dosing Est GFR ( Amer) Est GFR (Non-Af Amer) BUN/Creatinine Ratio Glucose POC Glucose 125 H 160 H Calcium Phosphorus Magnesium Albumin 11/28/22 11/28/22 11/28/22 07:35 11:36 16:30 WBC RBC Hgb Hct MCV MCH MCHC RDW Std Deviation RDW Coeff of Jacquelyn Plt Count MPV Immature Gran % (Auto) Neut % (Auto) Lymph % (Auto) Morrill % (Auto) Eos % (Auto) Baso % (Auto) Neut # (Auto) Lymph # (Auto) Morrill # (Auto) Eos # (Auto) Baso # (Auto) Immature Gran # (Auto) Sodium 133 L Potassium 4.1 Chloride 100 Carbon Dioxide 27 Anion Gap 6 BUN 16 Creatinine 0.94 Est Cr Clr Drug Dosing 104.9 Est GFR ( Amer) 101.0 Est GFR (Non-Af Amer) 87.2 BUN/Creatinine Ratio 17.0 Glucose 174 H POC Glucose 128 H 119 H Calcium 8.4 L Phosphorus 3.3 Magnesium 2.0 Albumin 3.6 11/28/22 19:50 WBC RBC Hgb Hct MCV MCH MCHC RDW Std Deviation RDW Coeff of Jacquelyn Plt Count MPV Immature Gran % (Auto) Neut % (Auto) Lymph % (Auto) Morrill % (Auto) Eos % (Auto) Baso % (Auto) Neut # (Auto) Lymph # (Auto) Morrill # (Auto) Eos # (Auto) Baso # (Auto) Immature Gran # (Auto) Sodium Potassium Chloride Carbon Dioxide Anion Gap BUN Creatinine Est Cr Clr Drug Dosing Est GFR ( Amer) Est GFR (Non-Af Amer) BUN/Creatinine Ratio Glucose POC Glucose 269 H Calcium Phosphorus Magnesium Albumin Diagnostic Findings blood and sputum cx's neg PG Care Time/CCT Total # of Minutes Spent Total Time Spent with Patient: Total time spent is greater than 50% in coordination of care (as documented) at patient's floor/unit and/or counseling patient: Coding Level of Care Code 25172 SUB INP/OBS CARE 2/35MIN Diagnoses Influenza A J10.1 Type 2 diabetes mellitus E11.9 Morbid obesity with BMI of 40.0-44.9, adult E66.01; Z68.41 Reactive airway disease J45.909 Hyperlipidemia E78.5 LAVONNE (obstructive sleep apnea) G47.33
[2022-11-28] MEDS: SIMVASTATIN 20 MG TAB PO SCH (20:28)
[2022-11-28] MEDS ORDERED: LANTUS PER UNIT CHARGE SQ SCH (21:00)
[2022-11-28] MEDS: guaiFENesin/CODEINE 100MG/10MG 5ML UDC PO PRN (22:39)
[2022-11-29 07:47] LABS: Basophils # (auto) 0.06 K/uL (0-0.2); Basophils % (auto) 0.4 %; Eosinophils # (auto) 0.02 K/uL (0-0.50); Eosinophils % (auto) 0.1 %; Hematocrit (blood only) 39.2 % (40.1-51.0); Immature Granulocytes # (auto) 0.23 K/uL (0.00-0.02); Immature Granulocytes % (auto) 1.5 %; Lymphocytes # (auto) 1.37 K/uL (1.2-3.4); Lymphocytes % (auto) 8.7 %; Mean Corpuscular Hemoglobin 27.9 pg (25.0-34.0); Mean Corpuscular Hgb Conc 33.2 g/dL (32.0-36.0); Mean Corpuscular Volume 84.1 fL (80.0-100.0); Mean Platelet Volume 9.7 fL (9.4-12.4); Monocytes # (auto) 0.79 K/uL (0.24-0.82); Neutrophils # (auto) 13.31 K/uL (1.4-6.5); Neutrophils % (auto) 84.3 %; Platelet Count 234 K/uL (130-400); RDW Coefficient of Variation 13.6 % (11.5-14.5); RDW Standard Deviation 41.8 fL (36.4-46.3); Red Blood Count 4.66 M/uL (4.63-6.08); White Blood Count 15.78 K/ul (4.8-10.8)
[2022-11-29 08:11] LABS: Albumin Level 3.7 gm/dl (3.4-5.0); BUN Creatinine Ratio 21.1 (10-20); Calcium 8.8 mg/dl (8.5-10.1); Creatinine Clr Calc Pharmacy 139.3 ml/min; Est GFR (African American) 117.4 ml/min; Est GFR (Non-African American) 101.3 ml/min; Magnesium 2.1 mg/dl (1.7-2.4); Phosphorus 3.3 mg/dl (2.5-4.9); Potassium 4.3 mmol/L (3.5-5.1)
[2022-11-29] MEDS: INSULIN ASPART PER UNIT SC SCH ×2 (08:14→12:37)
[2022-11-29] MEDS: ACETAMINOPHEN 325 MG TAB PO PRN (08:14)
[2022-11-29] MEDS: OSELTAMIVIR PHOSPHATE 75 MG CAP PO SCH (08:15)
[2022-11-29] MEDS: guaiFENesin 600 MG TABCR PO SCH (08:15)
[2022-11-29] MEDS ORDERED: metFORMIN HCL 500 MG TAB PO SCH (09:00)
[2022-11-29] MEDS: ENOXAPARIN INJ 40 MG/0.4 ML SYR SQ SCH (09:59)
[2022-11-29] MEDS: dexAMETHasone 6 MG in SYRINGE 0 ML IV SCH (12:45)
--- NOTE | 2022-11-29 16:06 | Discharge Summary ---
Date of Service date of admission - November 26, 2022 date of discharge - November 29, 2022 Admission HPI Per Admitting Provider The patient is a 62-year-old male possible history including diabetes mellitus, transaminitis, morbid obesity, COVID-19 infection, reactive airways disease, schwannoma of spinal cord, proteinuria, chronic low back pain, hyperlipidemia and nocturnal hypoxemia. He presents to the emergency department 3 days of shortness of breath, dyspnea on exertion, intermittently productive cough, lightheadedness, dizziness, fever and headache after working outside in the cold. Patient is influenza A positive. Significant abnormal laboratories: WBC 12.91, total bilirubin 1.3, RSV negative, COVID-19 negative. Principal Diagnosis Influenza A infection Acute bronchitis due to influenza Discharge Exam gen - looks better today; less cough; obese; no distress mouth - MMM throat - mild erythema neck - no JVD heart - RRR, s1 s2, no murmur lungs - no rales; scattered end-expiratory wheeze; moderate cough at times abd - soft NT ND BS+ ext - no edema, pulses 2+ b/l psych - a/o x 3 Discharge Data Allergies Allergy/AdvReac Type Severity Reaction Status Date / Time tramadol Allergy Intermediate hives/rash Verified 11/26/22 23:29 Ordered Studies Chest X-Ray 11/26/22 22:07 XR chest 1V portable CLINICAL HISTORY: cough, fever, headache TECHNIQUE: Single frontal radiograph of the chest was obtained. Comparison: Comparison is made to chest radiograph 08/01/2021 FINDINGS: No lines and tubes are seen. The cardiomediastinal silhouette is stable. The lungs are clear. No evidence of pleural effusion or pneumothorax. IMPRESSION: No acute abnormalities and in particular no evidence of pneumonia. ACT 112: Negative or not required by law. Electronically signed by: Oneal Giron M.D. 11/27/2022 8:32 AM Chest X-Ray 11/27/22 14:24 XR chest 2V PA/lateral HISTORY: 62 years-old Male fluA infection; severe cough; eval pneumonia acute cough COMPARISON: Chest radiograph November 26, 2022 TECHNIQUE: PA and lateral views of the chest FINDINGS: Cardiomediastinal silhouettes are within normal limits. No pneumothorax, pleural effusion, airspace consolidation or overt pulmonary edema. Degenerative changes of the shoulders and spine. IMPRESSION: No acute process. ACT 112: Negative or not required by law. The above report was generated using voice recognition software. It may contain grammatical, syntax or spelling errors. Electronically signed by: Moisés Yen M.D. 11/27/2022 3:47 PM Hospital Course (1) Influenza A: Patient was treated for influenza A infection with tamiflu, bronchodilators, cough medications, and later in his stay - steroids. He gradually improved while here. CXR x 2 were negative for complicating pneumonia. Interestingly he reported a history of "asthma" but stated that albuterol made his symptoms worse. He has a long-standing prior tobacco use history having quit at age 57. I suspect he has COPD rather than asthma The patient had copious purulent sputum. This cultured out a gram negative dona. Unfortunately the pathogen was unable to be identified fully. He was sent home with a 7-day course of oral augmentin for such. At discharge the following were advised - * tamiflu BID x 2 additional days * codeine-based cough syrup prn * augmentin x 7 days for bacterial bronchitis * 3-day course of PO dexamethasone * albuterol prn I recommended follow-up with [facility] to determine if he has underlying COPD from prior smoking. An appointment was arranged at time of discharge. (2) Reactive airway disease: h/o asthma - see #1 discussion needs PFTs to establish a dx of COPD vs asthma vs other O2 sats were wnl his entire stay; he never had an O2 requirement (3) Former tobacco use: 1 ppd for many years, having quit at age 57 (4) Type 2 diabetes mellitus: a1c 7% resume metformin 1gm BID at discharge (5) Morbid obesity with BMI of 40.0-44.9, adult: BMI 41 (6) Hyperlipidemia: cont simvastatin (7) LAVONNE (obstructive sleep apnea): uses CPAP with blended O2 at home Total Time Total Time Spent Total Time Spent (In Minutes): 40 Discharge Plan Discharge Items Patient Disposition: Home - Self-Care Reason For Visit: INFLUENZA A Infection Discharge Diagnosis: 1. influenza A ("the flu") - resolving 2. type 2 diabetes 3. concern for "COPD" - pulmonary follow-up needed Condition on Discharge: Good Activity: As commented below Activity Comment: gradually increase activities over the next week as tolerated Lifting: No more than 25 pounds Exercise/Sports: Wait until after follow-up appointment Driving/Machine Use: No driving if taking codeine-based cough syrup Non-emergency contact: Primary Care Provider Call non-emergency contact if: you have any medication questions and your symptoms worsen Follow-up/Referrals: Judy Fountain CRNP [Primary Care Provider] - 12/04/22 2:00 pm (With Lloyd TANG @ [address]) Felix Morgan MD [Physician] - 12/18/22 12:45 pm (Dec 18, 2022 @[address] Morgan) Diet: Carb Consistent or DM2 Addtl Attending Provider Instructions: Mr Reynolds, You were treated for the flu while hospitalized. You received Tamiflu anti-viral medication, steroids, breathing treatments, and other supportive care. You gradually improved during your stay. Your oxygen levels have been normal throughout your hospitalization. Just prior to discharge your sputum culture is indeed growing bacteria. Thus, we will be sending you home with an antibiotic for this in addition to the Tamiflu medication. Recommendations - 1. Tamiflu (oseltamivir) - 75mg twice daily x 2 days, first dose TONIGHT 11/29/22. This is your flu medication. 2. amoxicillin-clavulanate 875mg twice daily x 7 days, first dose TONIGHT 11/29/22. This is your antibiotic. 3. codeine-based cough syrup -- 5ml every 6 hours as needed for cough. This medication can cause you to feel drowsy. DO NOT DRIVE ANY VEHICLE or OPERATE HEAVY MACHINERY if you are taking this medication. Do not drink alcohol with this medication. 4. dexamethasone steroid - 6mg once daily x 3 days, first dose TOMORROW 11/30/22. 5. continue your CPAP with oxygen at night-time as previous. You are unlikely to be contagious to others from your flu. It has been well over 24 hours since your last fever, you are improving, and you are about 7 days past the start of the illness. With that said, over the next 2-3 days - especially if you are coughing a lot - please wear a mask around others. We are setting you up with a material combiner (lung doctor) to see if you have "COPD" from your prior tobacco use. COPD is a different lung condition than asthma. Know that the steroid will raise your blood sugar over the next few days. Please follow your blood sugars carefully during this time. Follow-up - see separate section [facility] to [facility] if - * you develop recurrent fevers over 100 degrees * you have worsening shortness of breath or chest pain * you have chest tightness * you develop severe diarrhea from your antibiotics * any other concerns Continue to feel better! Dr Barton Pending Studies at Discharge: Yes Studies:: sputum culture Stand-Alone Forms: My [facility], Work/School Release, Smoking Cessation Medications and DC Order Prescriptions: New oseltamivir [Tamiflu] 75 mg Capsule 75 mg PO BID Qty: 4 0RF Rx Instructions: first dose evening of 11/29/22. codeine-guaifenesin [Guaiatussin AC] 10-100 mg/5 mL Liquid 5 ml PO Q6H PRN (Reason: cough) Qty: 120 0RF Rx Instructions: do not drive or drink alcohol with this medication. dexamethasone 6 mg tablet 6 mg PO DAILY Qty: 3 0RF Rx Instructions: first dose 11/30/22. Continued metformin 1,000 mg tablet 1,000 mg PO BID Qty: 180 3RF simvastatin 20 mg tablet 20 mg PO QPM Qty: 90 3RF Label Comments: *pt state he is currently out of this med meloxicam 7.5 mg tablet 7.5 mg PO DAILY PRN (Reason: low back pain) Qty: 30 5RF albuterol sulfate [Ventolin HFA] 90 mcg/actuation HFA aerosol inhaler 2 puff INHALATION Q4H PRN (Reason: Shortness Of Breath Or Wheezing Or Cough) Qty: 8.5 0RF Rx Instructions: use with spacer device Discharge Orders: Discharge Order (Routine); Ordered 11/29/22 Ordered By: Tee Ellis/Other Patient Handouts: Managing Type 2 Diabetes, ED Influenza (Adult) Admission Data Admit Date/Time: 11/26/22 23:53 Attending Provider: Tee Barton Admit Provider: Zach Liriano Primary Care Provider: Judy Fountain Other Providers: Zach Liriano Other Interventions: Discharge Summary Assessment (RN) Last Done: 11/29/22 16:17 Coding Level of Care Code HOSP INP/OBS DISCH >30 MIN Diagnoses Influenza A J10.1 Reactive airway disease J45.909 Former tobacco use Z87.891 Type 2 diabetes mellitus E11.9 Morbid obesity with BMI of 40.0-44.9, adult E66.01; Z68.41 Hyperlipidemia E78.5 LAVONNE (obstructive sleep apnea) G47.33
== END 2022-11-29 17:36 | disposition home or self-care (01) | DRG 193 ==
LOC: ED 20:55 → 2S 23:53 → SUATTDRO 23:53 → 2S 11-27 03:09